=== PATIENT | female | born 1940 | race Caucasian/White ===

== ENCOUNTER 2017-03-04 10:53 | Emergency (ER) | payer MEDICARE, MEDICAID, SELFPAY ==
[2017-03-04 11:11] VITALS: BP 161/72; PULSE 93; RESP 18; TEMP 36.6; O2SAT 96; BMI 28.1
--- NOTE | 2017-03-04 11:26 | XR_ITS ---
XR chest 2V HISTORY: ITS.REASON: dx flu 4 days ago, cough worse and now SOA ORDERING PHYSICIAN: Sury Pastrana PATIENT AGE: 76 years COMPARISON: 01/05/2011 FINDINGS: The cardiomediastinal silhouette and pulmonary vascularity are within normal limits. There is a hiatal hernia. There is some patchy density in the lingula which may be due to an area of atelectasis, infiltrate, or even developing nodule.. The remaining lungs are clear. Degenerative changes are present in the thoracic spine. IMPRESSION: 1. Patchy density within the lingula nonspecific. Atelectasis infiltrate or developing nodule is considered. Follow-up suggested. 2. Small hiatal hernia
--- NOTE | 2017-03-04 12:16 | HMH.EDUTC ---
[facility] Disposition Clinical Impression: Influenza, Lingular pneumonia Disposition: Home, Self-Care Condition on Discharge: Good Instructions: Pneumonia-Adult, DI for Influenza -- Adult Additional Instructions: * As we discussed, your abnormality on your CXR is nonspecific but could be pneumonia and given your symptoms, pneumonia is likely. However follow up as we discussed VERY important. * Start antibiotic immediately * COntinue tamiflu * Tessalon Perles will not cause drowsiness but use at bedtime to help stop cough so that you can get some rest * Mucinex during the day for your cough and cough suppressant only at night. Be sure to drink lots of water. Insurance may not cover a prescription of mucinex. Might be cheaper to get 400mg tablets and take 2 tablets morning, midday and evening all with lots of water. * Lots of rest * Increase fluids, water, gatorade, powerade, pedialyte if /toddler/child * Monitor Temp. FU if fever develops * You (or your child) are contagious until no fever, aches, chills x 24 hours without medication for symptoms. Prescriptions: Azithromycin [Z-Dony 250mg Tab] 250 mg PO UD DOSE PK #6 tab Benzonatate [Tessalon Perle 100mg Cap] 200 mg PO HSP PRN #14 cap PRN Reason: Cough Referrals: Edgar Weiss MD [Primary Care Provider] - (On Monday to discuss CXR. Return here for new or worsening symptoms. 911/ER for difficulty breathing) Time of Disposition: 12:42 Medical Decision Making Vital Signs: 03/04/17 11:11 Temperature 98 F Temperature Source Temporal Artery Scan Pulse Rate [Right Radial] 93 H Respiratory Rate 18 Blood Pressure [Right Arm] 161/72 Blood Pressure Mean [Right Arm] 101 Blood Pressure Source [Right Arm] Automatic Cuff Blood Pressure Position [Right Arm] Sitting 02 Sat by Pulse Oximetry 96 Oxygen Delivery Method Room Air - Radiology Data #1 Image(s): Chest Image Reviewed: Yes I reviewed the patient's radiology image, Yes I have reviewed radiologist's interpretation nonspecific patchy density within lingula. Could be atelectasis, infiltrate or developing nodule. FU suggested. - Yosef Inquiry Pt receiving controlled substance: No [facility] HPI - General Stated complaint: had flu no better Time Seen by Provider: 03/04/17 12:16 Mode of Arrival: Ambulatory Source of Information: Patient Limitations: No Limitations Description of Symptoms (Recalled from Triage Doc. by RN): PT STATES THAT MONDAY SHE WAS SEEN BY [facility], TESTED POSITIVE FOR INFLUENZA A. PT REPORTS SHE IS NOW SOB AND HAS A COUGH. HEENT Symptoms (Recalled from RN notes): No Resp Symptoms (Recalled from RN notes): Yes (COUGH) Skin Symptoms (Recalled from RN notes): No MS Symptoms (Recalled from RN notes): No Functional Status (Recalled from RN notes): NA - History of Present Illness Provider Complaint: c/o worsening cough causing SOA since being diagnosed with the flu. Symptoms started like a little cold on Monday, 6 days ago. Got gradually worse each day so saw PCP's office ([facility]) on Monday. Dx flu. Started tamiflu and was told to continue mucinex. However cough seems worse and coughing so much I get short of breath . other family members have since tested positive as well. - Related Data Home Medications Medication Instructions Recorded Confirmed amlodipine 5 mg tablet 5 mg PO QDAY 03/01/17 atorvastatin 10 mg tablet 10 mg PO QDAY 03/01/17 cetirizine 10 mg tablet 10 mg PO QDAY tab 03/01/17 diclofenac 1 % topical gel 2 g TOPICAL QID 03/01/17 omeprazole 20 mg capsule,delayed 20 mg PO ONCE 03/01/17 release potassium chloride ER 10 mEq 10 meq PO QID cap 03/01/17 capsule,extended release valsartan 80 1 tab PO QDAY 03/01/17 mg-hydrochlorothiazide 12.5 mg tablet Previous Rx's Medication Instructions Recorded Azithromycin [Z-Dony 250mg Tab] 250 mg PO UD DOSE PK #6 tab 03/04/17 Benzonatate [Tessalon Perle 100mg 200 mg PO HSP PRN #14 cap 03/04/17 Cap] All
--- NOTE | 2017-03-04 12:34 | ED_ITS ---
[facility] [place] Clinical Impression: Influenza, Lingular pneumonia Disposition: Home, Self-Care Condition on Discharge: Good Instructions: Pneumonia-Adult, DI for Influenza -- Adult Additional Instructions: * As we discussed, your abnormality on your CXR is nonspecific but could be pneumonia and given your symptoms, pneumonia is likely. However follow up as we discussed VERY important. * Start antibiotic immediately * COntinue tamiflu * Tessalon Perles will not cause drowsiness but use at bedtime to help stop cough so that you can get some rest * Mucinex during the day for your cough and cough suppressant only at night. Be sure to drink lots of water. Insurance may not cover a prescription of mucinex. Might be cheaper to get 400mg tablets and take 2 tablets morning, midday and evening all with lots of water. * Lots of rest * Increase fluids, water, gatorade, powerade, pedialyte if /toddler/child * Monitor Temp. FU if fever develops * You (or your child) are contagious until no fever, aches, chills x 24 hours without medication for symptoms. Prescriptions: Azithromycin [Z-Dony 250mg Tab] 250 mg PO UD DOSE PK #6 tab Benzonatate [Tessalon Perle 100mg Cap] 200 mg PO HSP PRN #14 cap PRN Reason: Cough Referrals: Edgar Weiss MD [Primary Care Provider] - (On Monday to discuss CXR. Return here for new or worsening symptoms. 911/ER for difficulty breathing) Time of Disposition: 12:42 Medical Decision Making Vital Signs: 03/04/17 11:11 Temperature 98 F Temperature Source Temporal Artery Scan Pulse Rate [Right Radial] 93 H Respiratory Rate 18 Blood Pressure [Right Arm] 161/72 Blood Pressure Mean [Right Arm] 101 Blood Pressure Source [Right Arm] Automatic Cuff Blood Pressure Position [Right Arm] Sitting 02 Sat by Pulse Oximetry 96 Oxygen Delivery Method Room Air - Radiology Data #1 Image(s): Chest Image Reviewed: Yes I reviewed the patient's radiology image, Yes I have reviewed radiologist's interpretation nonspecific patchy density within lingula. Could be atelectasis, infiltrate or developing nodule. FU suggested. - Yosef Inquiry Pt receiving controlled substance: No [facility] [place] HPI - General Stated complaint: had flu no better Time Seen by Provider: 03/04/17 12:16 Mode of Arrival: Ambulatory Source of Information: Patient Limitations: No Limitations Description of Symptoms (Recalled from Triage Doc. by RN): PT STATES THAT MONDAY SHE WAS SEEN BY [facility], TESTED POSITIVE FOR INFLUENZA A. PT REPORTS SHE IS NOW SOB AND HAS A COUGH. HEENT Symptoms (Recalled from RN notes): No Resp Symptoms (Recalled from RN notes): Yes (COUGH) Skin Symptoms (Recalled from RN notes): No MS Symptoms (Recalled from RN notes): No Functional Status (Recalled from RN notes): NA - History of Present Illness Provider Complaint: c/o worsening cough causing SOA since being diagnosed with the flu. Symptoms started like a little cold on Monday, 6 days ago. Got gradually worse each day so saw PCP's office ([facility]) on Monday. Dx flu. Started tamiflu and was told to continue mucinex. However cough seems worse and coughing so much I get short of breath . other family members have since tested positive as well. - Related Data Home Medications Medication Instructions Recorded Confirmed amlodipine 5 mg tablet 5 mg PO QDAY 03/01/17 atorvastatin 10 mg tablet 10 mg PO QDAY 03/01/17 cetirizine 10 mg tablet 10 mg PO QDAY tab 03/01/17
== END 2017-03-04 12:44 | disposition home or self-care (01) ==
PROVIDERS: Emergency Provider Nurse Practitioner Family; Family Provider Emergency Medicine; PCP Emergency Medicine
DX: J10.1 Influenza due to other identified influenza virus with other respiratory manifestations (principal); J18.9 Pneumonia, unspecified organism
CPT/HCPCS: G0463; 71046; 99202

== ENCOUNTER → 2017-04-03 14:44 | Outpatient (CLI) | payer MEDICARE, MEDICAID, SELFPAY ==
--- NOTE | 2017-04-03 14:47 | XR_ITS ---
XR chest 2V HISTORY: ITS.REASON: Chest Congestion ORDERING PHYSICIAN: Edgar Weiss MD PATIENT AGE: 76 years COMPARISON: 03/04/2017 FINDINGS: Unremarkable cardiovascular structures. There is a small to medium sized hiatal hernia with chronic changes in the left lower lobe. Hyperinflation with attenuation of the peripheral pulmonary vessels consistent with COPD. No lobar consolidation or collapse. Mild thoracic kyphosis with degenerative changes in the thoracic spine. IMPRESSION: COPD with hiatal hernia. No change with no acute finding
== END ==
PROVIDERS: PCP Emergency Medicine; Visit Provider Emergency Medicine
DX: R09.89 Other specified symptoms and signs involving the circulatory and respiratory systems (principal)
CPT/HCPCS: 71046

== ENCOUNTER → 2017-05-02 13:37 | Outpatient (REF) | payer MEDICARE, MEDICAID, SELFPAY ==
[2017-05-02 18:41] LABS: Basophils # 0.1 K/mm3 (0-0.2); Basophils % 0.7 % (0.1-2.0); Eosinophils # 0.1 K/mm3 (0.0-0.4); Hematocrit 43.3 % (37.0-47.0); Hemoglobin 13.6 g/dL (12.2-16.2); Lymphocytes # 2.2 K/mm3 (0.7-4.5); Lymphocytes % 30.1 K/mm3 (10-50); Mean Corpuscular HGB Conc 31.4 g/dL (31.8-35.4); Mean Corpuscular Hemoglobin 26.9 pg (27.0-31.2); Mean Corpuscular Volume 85.6 fl (81-99); Mean Platelet Volume 7.5 fl (7.4-10.4); Monocytes # 0.5 K/mm3 (0.1-1.0); Monocytes % 6.5 % (1.7-9.3); Neutrophils # 4.4 K/mm3 (1.8-7.8); Neutrophils % 60.7 % (37.0-80.0); Platelet Count 335 K/mm3 (142-424); Red Blood Count 5.06 M/mm3 (4.20-5.40); Red Cell Distribution Width 13.8 % (11.5-17.5); White Blood Count 7.3 K/mm3 (4.8-10.8)
[2017-05-02 19:29] LABS: Alanine Aminotransferase 23 U/L (12-78); Albumin Level 4.1 gm/dL (3.4-5.0); Albumin/Globulin Ratio 1.1 (1.1-1.8); Alkaline Phosphatase 91 U/L (46-116); Aspartate Amino Transferase 19 U/L (15-37); Bilirubin,Total 0.5 mg/dL (0.2-1.0); Blood Urea Nitrogen 15 mg/dL (7-18); Calcium 9.8 mg/dL (8.5-10.1); Carbon Dioxide 28 mmol/L (21.0-32.0); Chloride 102 mmol/L (98-107); Chol/HDL Ratio 3.2 (1-3.5); Cholesterol 175 mg/dL (140-200); Creatinine,Serum 1.14 mg/dL (0.55-1.02); Estimated Glomerular Filt Rate 46 ml/min (>60); Free T4 (Free Thyroxine) 0.91 ng/dl (0.76-1.46); GFR (African American) 56 ML/MIN (>60); Globulin 3.6 gm/dl (1.3-3.2); Glucose 121 mg/dL (74-106); HDL Cholesterol 54 mg/dL (29-89); LDL Cholesterol 60 mg/dL (0-130); Sodium 137 mmol/L (136-145); Thyroid Stimulating Hormone 1.96 uIU/ml (0.358-3.740); Total Protein,Serum 7.7 gm/dL (6.4-8.2); Triglycerides 306 mg/dL (30-200); VLDL Cholesterol 61 mg/dL (0-40)
[2017-05-04 12:17] LABS: Vitamin D 25 Hydroxy 50.3 ng/mL (30.0-100.0)
== END ==
LOC: LAB 13:37
PROVIDERS: Visit Provider Emergency Medicine
DX: Z79.899 Other long term (current) drug therapy (principal); R53.83 Other fatigue
CPT/HCPCS: 80053; 80061; 82652; 84439; 84443; 85025

== ENCOUNTER → 2018-02-14 08:06 | Outpatient (CLI) | payer MEDICARE, MEDICAID, SELFPAY ==
[2018-02-14 08:29] LABS: Basophils # 0.1 K/mm3 (0-0.2); Basophils % 1.1 % (0.1-2.0); Eosinophils # 0.1 K/mm3 (0.0-0.4); Eosinophils % 1.3 % (0.1-12.0); Hematocrit 40.9 % (37.0-47.0); Hemoglobin 13.2 g/dL (12.2-16.2); Lymphocytes % 31.1 % (10-50); Mean Corpuscular HGB Conc 32.3 g/dL (31.8-35.4); Mean Corpuscular Hemoglobin 26.6 pg (27.0-31.2); Mean Corpuscular Volume 82.5 fl (81-99); Mean Platelet Volume 6.7 fl (7.4-10.4); Monocytes # 0.3 K/mm3 (0.1-1.0); Monocytes % 4.3 % (1.7-9.3); Neutrophils % 62.1 % (37.0-80.0); Platelet Count 261 K/mm3 (142-424); Red Blood Count 4.95 M/mm3 (4.20-5.40); Red Cell Distribution Width 13.8 % (11.5-17.5); White Blood Count 6.5 K/mm3 (4.8-10.8)
[2018-02-14 10:30] LABS: Alanine Aminotransferase 22 U/L (12-78); Albumin Level 3.9 gm/dL (3.4-5.0); Albumin/Globulin Ratio 1.1 (1.1-1.8); Alkaline Phosphatase 88 U/L (46-116); Anion Gap 11.7 mEq/L (5-15); Aspartate Amino Transferase 16 U/L (15-37); Bilirubin,Total 0.7 mg/dL (0.2-1.0); Blood Urea Nitrogen 18 mg/dL (7-18); Calcium 10.1 mg/dL (8.5-10.1); Carbon Dioxide 31 mmol/L (21.0-32.0); Chloride 103 mmol/L (98-107); Chol/HDL Ratio 2.7 (1-3.5); Cholesterol 167 mg/dL (140-200); Creatinine,Serum 0.75 mg/dL (0.55-1.02); Estimated Glomerular Filt Rate 75 ml/min (>60); GFR (African American) 90 ML/MIN (>60); Globulin 3.7 gm/dl (1.3-3.2); Glucose 111 mg/dL (74-106); HDL Cholesterol 61 mg/dL (29-89); LDL Cholesterol 88 mg/dL (0-130); Potassium 4.7 mmoL/L (3.5-5.1); Sodium 141 mmol/L (136-145); Total Protein,Serum 7.6 gm/dL (6.4-8.2); Triglycerides 90 mg/dL (30-200); VLDL Cholesterol 18 mg/dL (0-40)
[2018-02-16 16:13] LABS: Vitamin D 25 Hydroxy 43.3 ng/mL (30.0-100.0)
== END ==
PROVIDERS: Visit Provider Nurse Practitioner Family
DX: E55.9 Vitamin D deficiency, unspecified (principal); E78.5 Hyperlipidemia, unspecified; I10 Essential (primary) hypertension
CPT/HCPCS: 36415; 80053; 80061; 82652; 85025

== ENCOUNTER → 2018-05-24 09:16 | Outpatient (CLI) | payer MEDICARE, MEDICAID, SELFPAY ==
--- NOTE | 2018-05-24 09:26 | XR_ITS ---
XR hip RT 2-3V w/pelvis HISTORY: ITS.REASON: right hip pain ORDERING PHYSICIAN: Antony Faustin MD PATIENT AGE: 77 years COMPARISON: None FINDINGS: There are mild osteoarthritic changes of both hips. No fracture or dislocation. No lytic or blastic change. Degenerative changes are present in the lower lumbar spine. IMPRESSION: Mild osteoarthritis
== END ==
PROVIDERS: PCP Emergency Medicine; Visit Provider Orthopaedic Surgery
DX: M25.551 Pain in right hip (principal)
CPT/HCPCS: 73502

== ENCOUNTER 2018-06-12 09:00 | Outpatient (RCR) | payer MEDICARE, MEDICAID, SELFPAY ==
--- NOTE | 2018-06-05 11:43 | HMH.PTOPEV ---
PT Outpatient Evaluation Rehab PT Outpatient Evaluation Start: 06/05/18 11:33 Freq: Status: Active Protocol: Document 06/05/18 11:33 GALINDO (Rec: 06/05/18 11:43 GALINDO [id number]) Electronically Signed By Tony Maddox, PT 06/05/18 11:33 Outpatient Therapy Subjective History Subjective History Pt reports h/o chronic R hip pain since 2013, multiple injections, P.T., and imaging studies-better from 2015-until ~8-9 months ago. Pt reports mostly posterio-lateral R hip pain, recent injection on 05/24 into grt. tro bursa area ' seemed to help, but didn't last long'. Chief Complaint Pain Symptom Type Ache Throb Dull Symptoms Relieved By Rest/Positioning Prescription Meds Symptoms Aggravated By Bending/Stooping Walking Lifting Prior Functional Limitations Lifting Housework Current Functional Limitations Lifting Housework Walking Bending/Stooping Symptom Description Constant but Variable Level of pain today (0-10) 3 Pain scale - at its best (0-10) 2 Pain scale - at its worst (0-10) 7 Lumbopelvic Eval Posture Thoracic Spine Posture Standing Position Neutral Lumbar Spine Posture Standing Position Neutral Assistive device Assistive Devices None / NA Gait Observation General Gait Pattern Observation No Deviations/Normal Palapation tenderness right paraspinal tenderness Yes: 3/4 buttock tenderness Yes: 3/4 Lumbar/Sacral Palpation Findings Tenderness Accessory Movement L4 right L5 right Range of Motion Lumbar Spine Active Flexion Range of 0-50 Motion (degrees) Lumbar Spine Active Extension Range of 0-20 Motion (degrees) Left Lumbar Spine Lateral Flexion Active 0-20 Range of Motion (degrees) Right Lumbar Spine Lateral Flexion 0-20 Active Range of Motion (degrees) Manual Muscle Test Bilateral Knee Extension Strength Grade 5 Normal Knee Flexion Strength Grade 4 Good Hip Flexion Strength Grade 4 Good Hip Abduction Strength Grade 4 Good Hip External Rotation Strength Grade 4 Good Hip Internal Rotation Strength Grade 4 Good Extensor Hallucis Longus Strength Grade 5 Normal Ankle D
== END 2018-06-12 09:05 | disposition home or self-care (01) ==
LOC: PT 09:00
PROVIDERS: Visit Provider Orthopaedic Surgery
DX: M70.71 Other bursitis of hip, right hip (principal)
CPT/HCPCS: 97010; 97014; 97035; 97110; 97163; G0283

== ENCOUNTER → 2019-03-07 07:06 | Outpatient (CLI) | payer MEDICARE, OTHER, SELFPAY ==
--- NOTE | 2019-03-07 | CA_ITS ---
APPROVED REPORT Exam: Pharmacologic Technologist: Suha Dempsey, Ht: 5 ft 4 in Wt: 156 lbs BSA: 1.76 m2 HR: 66 bpm BP: 179/75 mmHg Indications: SOA Medical History Medical History: HTN, Hyperlipidemia Medications: Losartan,,,,, KCL,,,,, Amlod/Benazepril,,,,, AtorvaASTATIN,,,,, Omepazole,,,,, Allergies: No known drug allergies Cardiac Risk Factors: HTN, Hyperlipidemia, Smoking Stress Test Details Test: LEXISCAN HR Resting HR: 70 bpm Max Heart Rate (APMHR): 141 bpm Max HR Achieved: 104 bpm Target HR (85% APMHR): 119 bpm % of APMHR: 73 Recovery HR: 66 bpm BP Resting BP: 179/75 mmHg Max BP: 179/75 mmHg Recovery BP: 111.0/52.0 mmHg ECG Resting ECG: SINUS RHYTHM Clinical Exercise duration: 04:00 min Highest Stage Achieved: Stress ECG Conclusion LEXISCAN PORTION COMPLETED. PATIENT HAD NO C/O DURING PEAK INFUSION. NO CHEST PAIN,SOA,OR N/V. NO ECTOPY NOTED. LESS THAN 1.5MM ST DEPRESSION. IMAGES TO FOLLOW Test Summary REST . . . . . . . Sitting REST 07:14 . . 70 . 179/ 75 . . Stage 1 01:00 . . 101 . . . . Stage 2 01:00 . . 86 . 161/ 70 . . Stage 3 01:00 . . 68 . 117/ 57 . . Stage 4 01:00 . . 57 . 116/ 49 . Stop exercise at 04:00 RECOVERY 01:00 . . 65 . 111/ 52 . . RECOVERY 02:00 . . 71 . 111/ 58 . . RECOVERY 03:00 . . 70 . 132/ 63 . . RECOVERY 04:00 . . 70 . 132/ 63 . . RECOVERY 04:03 . . 69 . 132/ 63 . . Electronically signed by : Marty Jolly, 03/07/2019 15:13:55
--- NOTE | 2019-03-07 07:07 | CA_ITS ---
APPROVED REPORT EXAM: Comprehensive 2D, Doppler, and color-flow Echocardiogram Executive Manager: Tosin Matson RT(R) Ht: 5 ft 4 in Wt: 156lbs BSA: 1.76 BP: 142/80 mmHg Indications: CP, fatigue, HTN, hyperlipidemia, SOB 2D Dimensions LVOT 1.57 cm (M/F) 1.5-2.5 M-Mode Dimensions RVDd 1.54 cm (0.9-2.6) LVDd 5.10 cm (3.5-5.7) LVDs 3.79 cm (3.5-5.7) IVSd 0.74 cm (0.6-1.1) PWd 1.07 cm (0.6-1.1) EF (Teich) 50.20% FS 25.70% EDV (Teich) 123.80 mL ESV (Teich) 61.60 mL LV Diastology E/A Ratio 0.82 Mitral Valve MV A Velocity 99.00 (40-130 cm/s) Left Ventricle Left atrium is mildly enlarged, left ventricle is normal size, mild concentric left ventricular hypertrophy, visually estimated ejection fraction 55% with no regional wall motion abnormality. Grade 1 diastolic dysfunction seen without tissue Doppler evidence of raise left atrial pressure. Right Ventricle Right atrium and right ventricle are mildly enlarged with normal contractility. Aortic Valve Aortic valve is thickened and calcified leaflet chordae display good mobility, there is no aortic stenosis or aortic insufficiency. Mitral Valve Mitral valve is grossly normal, there is mild mitral regurgitation. Tricuspid Valve Tricuspid valve is grossly normal, there is mild tricuspid regurgitation, tricuspid regurgitation jet velocity is inadequate for calculation of the right ventricular systolic pressure. Pulmonic Valve Pulmonic valve is poorly visualized. Great Vessels Aortic root is normal size. Pericardium No significant pericardial effusion noted. Conclusion 1. Mild biatrial abdomen, normal left ventricular size, mild concentric left ventricular hypertrophy, visually estimated ejection fraction 55% with no regional wall motion abnormality, grade 1 diastolic dysfunction seen without tissue Doppler evidence of raise left atrial pressure. 2. Mildly enlarged right ventricle with normal contractility. 3. Mild mitral and tricuspid regurgitation. 4. No significant pericardial effusion noted. Electronically signed by : Marty Jolly, 03/08/2019 13:31:02
--- NOTE | 2019-03-07 07:07 | NM_ITS ---
APPROVED REPORT Exam: Nuclear Stress Test Indication: HTN, HYPERLIPIDEMIA, FM.HX, SOB, FATIGUE Patient Location: Outpatient Stress Tech: Betzy Maximus MA Tech:Umm Sullivan VICKIBibi RT(R)(N) Ht: 5 ft 4 in Wt: 156 lbs Bra Size: 38DD HR: 66 bpm BP: 179/75 mmHg BSA: 1.76 m2 BMI: 26.7 History: HTN, HYPERLIPIDEMIA, FM.HX, SOB, FATIGUE Procedure: Patient received a 0.4 mg of intravenous Lexiscan, resting heart rate 66 bpm, resting blood pressure 179/75 mmHg, with Lexiscan maximum heart rate achived was 58 bpm which is Less than 85 % of the maximum predicted heart rate and blood pressure was 116/49 mmHg. With Lexiscan, patient denied any complaint of chest pain. Electrocardiogram Resting electrocardiogram showed sinus rhythm, with Lexiscan there is less than 1.[address] segment depression from the baseline EKG. The EKG portion of the Lexiscan Myoview is nondiagnostic. Cardiac Stress and Resting SPECT Images: Cardiac Stress and Resting SPECT images were obtained using technetium 99m Myoview 31.4 mCi stress and 10.50 mCi at rest. Gated SPECT for analysis of segmental wall motion and calculation of the ejection fraction also done. Cardiac stress and resting SPECT images show uniform myocardial activity without segmental perfusion abnormality, computer derived ejection fraction is over 65% with no regional wall motion abnormality, right ventricle is normal size and contractility. Conclusion: 1. The EKG portion of the Lexiscan Myoview is nondiagnostic. 2. No scintigraphic evidence of reversible ischemia seen, computer derived ejection fraction is over 65% with no regional wall motion abnormality, right ventricle is normal size and contractility. 3. Normal Lexiscan Myoview study. Electronically signed by : Marty Jolly, 03/07/2019 15:15:22
--- NOTE | 2019-03-07 09:52 | HMH.ITSHM ---
Current Home Medications as stated by this patient Otilia Melendez or client representative. []losartan atorrastatin omeprazole potassium amlodipine
== END ==
PROVIDERS: PCP Emergency Medicine; Visit Provider Emergency Medicine
DX: R01.1 Cardiac murmur, unspecified (principal); R07.9 Chest pain, unspecified
CPT/HCPCS: 78452; 93017; 93306; A9502; J2785

== ENCOUNTER 2020-01-01 09:55 | Emergency (ER) | payer MEDICARE, OTHER, SELFPAY ==
[2020-01-01] VITALS (14 sets, daily range): BP systolic 121–258; BP diastolic 60–119; PULSE 71–103; RESP 16–22; TEMP 36.6–36.7; O2SAT 94–100; BMI 26.6
--- NOTE | 2020-01-01 10:04 | ECG_ITS ---
APPROVED REPORT Exam: Resting ECG HR:107 bpm ECG Measurements Heart Rate 107 AXES QRSd 68 QRS 66 QT 304 T 100 QTc 405 Conclusion sinus tachycardia with PAC'S Nonspecific ST and T wave abnormality,Motion Artifact Abnormal ECG Electronically signed by : Jesse Webb, 01/01/2020 16:04:02
--- NOTE | 2020-01-01 10:10 | PC.NURSE ---
fsbs 119
--- NOTE | 2020-01-01 10:12 | PC.NURSE ---
visual acuity L 20/30 R 20/20
--- NOTE | 2020-01-01 10:13 | XR_ITS ---
PROCEDURE: XR CHEST PORTABLE CLINICAL HISTORY: doesnt feel right Visual disturbance, weakness COMPARISON: CR CXR2V XR chest 2V from 03/04/2017 CR CXR2V XR chest 2V from 04/03/2017 FINDINGS: The cardiomediastinal silhouette and pulmonary vascularity are within normal limits. There are chronic changes in the left lower lobe with small hiatal hernia noted. Degenerative changes of the shoulders IMPRESSION: No acute findings. Dictated by: Aneudy Martinez MD 01/01/2020 10:43 Aneudy Maritnez MD in [facility] 01/01/2020 10:43
--- NOTE | 2020-01-01 10:13 | CT_ITS ---
PROCEDURE: CT HEAD/BRAIN WO CON CLINICAL INDICATION: vision changes Visual disturbance COMPARISON: No exams were available for comparison TECHNIQUE: Axial images obtained. All CT scans at the facility use one or more dose reduction, viz: automated exposure control, ma/kV adjustment per patient size (including targeted exams where dose is matched to indication, i.e. head), or iterative reconstruction technique. FINDINGS: No midline shift, mass effect, intracranial hemorrhage, hydrocephalus, or extra-axial fluid collection is evident. There is generalized atrophy with hypoattenuation of the periventricular white matter consistent with microangiopathic changes. The calvarium has an unremarkable appearance. No mastoid effusion. No sinus air-fluid level. IMPRESSION: No acute intracranial finding Dictated by: Aneudy Martinez MD 01/01/2020 10:42 Aneudy Martinez MD in [facility] 01/01/2020 10:42
--- NOTE | 2020-01-01 10:14 | PC.NURSE ---
pt to CT
[2020-01-01 10:24] LABS: Basophils # 0.1 K/mm3 (0-0.2); Basophils % 0.6 % (0.1-2.0); Eosinophils # 0.1 K/mm3 (0.0-0.4); Eosinophils % 0.9 % (0.1-12.0); Hematocrit 43.7 % (37.0-47.0); Hemoglobin 13.8 g/dL (12.2-16.2); Lymphocytes # 2.4 K/mm3 (0.7-4.5); Lymphocytes % 27.9 % (10-50); Mean Corpuscular HGB Conc 31.6 g/dL (31.8-35.4); Mean Corpuscular Hemoglobin 26.4 pg (27.0-31.2); Mean Corpuscular Volume 83.4 fl (81-99); Mean Platelet Volume 6.6 fl (7.4-10.4); Monocytes # 0.4 K/mm3 (0.1-1.0); Monocytes % 4.4 % (1.7-9.3); Neutrophils # 5.6 K/mm3 (1.8-7.8); Neutrophils % 66.2 % (37.0-80.0); Platelet Count 261 K/mm3 (142-424); Red Blood Count 5.24 M/mm3 (4.20-5.40); Red Cell Distribution Width 13.4 % (11.5-17.5); White Blood Count 8.5 K/mm3 (4.8-10.8)
[2020-01-01 10:35] LABS: Chloride 98 mmol/L (98-107); Sodium 139 mmol/L (136-145)
[2020-01-01 10:36] LABS: Potassium 3.4 mmoL/L (3.5-5.1)
--- NOTE | 2020-01-01 10:36 | PC.NURSE ---
pt return from CT
[2020-01-01 10:38] LABS: Alanine Aminotransferase 21 U/L (12-78); Albumin Level 5.2 g/dl (3.5-5.0); Albumin/Globulin Ratio 1.4 (1.1-1.8); Alkaline Phosphatase 96 U/L (38-126); Anion Gap 15.4 mEq/L (5-15); Aspartate Amino Transferase 36 U/L (14-36); Bilirubin,Total 1.1 mg/dl (0.2-1.3); Blood Urea Nitrogen 15 mg/dl (7-17); Carbon Dioxide 29 mmol/L (22.0-30.0); Creatinine Clearance Estimated 50 mL/min (50-200); Estimated Glomerular Filt Rate 81 ml/min (>60); GFR (African American) 97 ML/MIN (>60); Globulin 3.8 g/dL (1.3-3.2)
[2020-01-01 10:39] LABS: Calcium 10.9 mg/dl (8.4-10.2); Glucose 136 mg/dl (74-100)
[2020-01-01 10:43] LABS: Activated Partial Thrombo Time 24.8 seconds (23.6-34.0); INR 1.03 (0.9-1.1); Prothrombin Time 11.4 seconds (9.4-11.8)
[2020-01-01 10:44] LABS: POC Glucose,Bedside 119 (70-110)
--- NOTE | 2020-01-01 10:58 | HMH.EDWEAK ---
ED Disposition Clinical Impression: Headache Qualifiers: Headache type: unspecified Headache chronicity pattern: acute headache Intractability: not intractable Qualified Code(s): R51.9 - Headache, unspecified Hypertension Qualifiers: Hypertension type: essential hypertension Qualified Code(s): I10 - Essential (primary) hypertension Disposition: Home, Self-Care Condition on Discharge: Good Instructions: Essential Hypertension Referrals: Edgar Weiss MD [Primary Care Provider] - - Critical Care Critical Care Time: No Attestation: On 01/01/20, the high probability of a clinically significant, sudden or life threatening deterioration of the following system(s) required my full and direct attention, intervention and personal management. The time I documented below is in addition to time spent performing reported procedures but includes the following listed in this critical care notation. Medical Decision Making - Medical Records Medical records reviewed: Yes: I reviewed the patient's medical records. - Yosef Inquiry Pt receiving controlled substance: No Vital Signs: 01/01/20 09:58 01/01/20 10:11 01/01/20 10:30 Temperature 97.8 F Temperature Source Oral Pulse Rate [Left Radial] 103 H 100 H 85 Respiratory Rate 18 17 Blood Pressure Blood Pressure [Left Arm] 192/91 H 189/86 H 205/95 H Blood Pressure Mean [Left Arm] 124 120 131 Blood Pressure Source [Left Arm] Automatic Cuff Automatic Cuff Blood Pressure Position [Left Arm] Sitting 02 Sat by Pulse Oximetry 96 97 100 Oxygen Delivery Method Room Air Room Air 01/01/20 11:01 01/01/20 11:09 01/01/20 11:20 Temperature Temperature Source Pulse Rate [Left Radial] 85 88 91 H Respiratory Rate 18 Blood Pressure Blood Pressure [Left Arm] 258/119 H 234/108 H 217/106 H Blood Pressure Mean [Left Arm] 165 150 143 Blood Pressure Source [Left Arm] Automatic Cuff Blood Pressure Position [Left Arm] 02 Sat by Pulse Oximetry 96 97 Oxygen Delivery Method Room Air 01/01/20 11:30 01/01/20 11:42 01/01/20 11:50 Temperature Temperature Source Pulse Rate [Left Radial] 95 H 78 Respiratory Rate 16 Blood Pressure 236/110 H Blood Pressure [Left Arm] 224/106 H 205/94 H Blood Pressure Mean [Left Arm] 145 131 Blood Pressure Source [Left Arm] Blood Pressure Position [Left Arm] 02 Sat by Pulse Oximetry 95 Oxygen Delivery Method 01/01/20 11:55 01/01/20 11:57 01/01/20 12:00 Temperature Temperature Source Pulse Rate [Left Radial] 72 75 71 Respiratory Rate 22 22 18 Blood Pressure Blood Pressure [Left Arm] 167/84 H 139/66 125/61 Blood Pressure Mean [Left Arm] 111 90 82 Blood Pressure Source [Left Arm] Blood Pressure Position [Left Arm] 02 Sat by Pulse Oximetry 95 94 L 96 Oxygen Delivery Method - Lab Data Lab Results 01/01/20 10:09: POC Glucose 119 H 01/01/20 10:10: WBC 8.5, RBC 5.24, Hgb 13.8, Hct 43.7, MCV 83.4, MCH 26.4 L, MCHC 31.6 L, RDW 13.4, Plt Count 261, MPV 6.6 L, Neut % (Auto) 66.2, Lymph % (Auto) 27.9, Crosby % (Auto) 4.4, Eos % (Auto) 0.9, Baso % (Auto) 0.6, Neut # (Auto) 5.6, Lymph # (Auto) 2.4, Crosby # (Auto) 0.4, Eos # (Auto) 0.1, Baso # (Auto) 0.1 01/01/20 10:10: PT 11.4, INR 1.03, APTT 24.8 01/01/20 10:10: Sodium 139, Potassium 3.4 L, Chloride 98, Carbon Dioxide 29, Anion Gap 15.4 H, BUN 15, Creatinine 0.70, Estimated Creat Clear 50, Estimated GFR 81, Est GFR ( Amer) 97, Glucose 136 H, Calcium 10.9 H, Total Bilirubin 1.1, AST 36, ALT 21, Alkaline Phosphatase 96, Troponin I < 0.01, Total Protein 9.0 H, Albumin 5.2 H, Globulin 3.8 H, Albumin/Globulin Ratio 1.4 Result diagrams: 01/01/20 10:10 01/01/20 10:10 Orders (Tests/Meds): ED MEDICATIONS Discontinued Medications Generic Name Dose Route Start Last Admin Trade Name Freq PRN Reason Stop Dose Admin Hydralazine HCl 10 mg 01/01/20 10:47 01/01/20 10:57 Hydralazine 20mg/Ml Vial IV 01/01/20 10:48 10 mg ONC
[2020-01-01 11:03] LABS: Troponin I < 0.01 ng/ml (0.00-0.034)
== END 2020-01-01 13:12 | disposition home or self-care (01) ==
PROVIDERS: Emergency Provider Emergency Medicine; PCP Emergency Medicine
DX: R51.9 Headache, unspecified (principal); I10 Essential (primary) hypertension; K21.9 Gastro-esophageal reflux disease without esophagitis; E78.5 Hyperlipidemia, unspecified; E87.6 Hypokalemia; E55.9 Vitamin D deficiency, unspecified; Z79.899 Other long term (current) drug therapy; Z51.81 Encounter for therapeutic drug level monitoring
CPT/HCPCS: 70450; 71045; 80053; 82962; 84484; 85025; 85610; 85730; 93005; 96374; 96375; 99283

== ENCOUNTER → 2020-01-20 10:17 | Outpatient (CLI) | payer MEDICARE, OTHER, SELFPAY ==
[2020-01-20 12:37] LABS: Coronavirus 19 IgG Antibody Positive (Negative); Coronavirus 19 IgM Antibody Negative (Negative)
== END ==
PROVIDERS: Visit Provider Ophthalmology
DX: Z01.818 Encounter for other preprocedural examination (principal)
CPT/HCPCS: 36415; 86328

== ENCOUNTER 2020-01-21 08:23 | Day surgery (SDC) | payer MEDICARE, OTHER, SELFPAY ==
[2020-01-14 13:22] VITALS: BMI 26.6
[2020-01-21 09:40] VITALS: BP 153/71; PULSE 77; RESP 18; TEMP 36.4; O2SAT 99
[2020-01-21 10:57] VITALS: BP 155/75; PULSE 85; RESP 16; TEMP 36.6; O2SAT 95
== END 2020-01-21 11:04 | disposition home or self-care (01) ==
LOC: OUTP 08:26
PROVIDERS: PCP Emergency Medicine; Visit Provider Ophthalmology
PROC: (CPT 66821; principal; 2020-01-21 09:00)
DX: H26.40 Unspecified secondary cataract (principal); M19.90 Unspecified osteoarthritis, unspecified site; K21.9 Gastro-esophageal reflux disease without esophagitis; I10 Essential (primary) hypertension; E78.5 Hyperlipidemia, unspecified; J44.9 Chronic obstructive pulmonary disease, unspecified; H91.90 Unspecified hearing loss, unspecified ear
CPT/HCPCS: 66821

== ENCOUNTER → 2020-03-11 12:06 | Outpatient (CLI) | payer MEDICARE, OTHER, SELFPAY ==
--- NOTE | 2020-03-11 | CA_ITS ---
APPROVED REPORT Exam: Pharmacologic Technologist: Chela Ontiveros, Ht: 5 ft 2 in Wt: 152 lbs BSA: 1.70 m2 HR: 71 bpm BP: 161/69 mmHg Indications: Chest pain, HTN Medical History Medications: Amlodipine,,,,, Omeprazole,,,,, Atorvastatin,,,,, Losartan/HCTZ,,,,, Diclofenac,,,,, VitaminD 3,,,,, [place],,,,, Stress Test Details Test: LEXISCAN HR Resting HR: 90 bpm Max Heart Rate (APMHR): 140 bpm Max HR Achieved: 110 bpm Target HR (85% APMHR): 119 bpm % of APMHR: 78 Recovery HR: 76 bpm BP Resting BP: 161/69 mmHg Max BP: 161/69 mmHg Recovery BP: 128.0/56.0 mmHg ECG Resting ECG: NSR, Normal Clinical Exercise duration: 04:01 min Highest Stage Achieved: Exercise capacity: 1.0 METs Stress ECG Conclusion Symptoms: Mild stomach discomfort, lightheaded, No CP. Arrythmias/Ectopy: None ST-T Changes: No significant changes Conclusion: Unremarkable Lexiscan stress, Myoview images reported separetely. Test Summary REST . . . . . . . Resting REST 03:25 . . 90 . 161/ 69 . . Stage 1 01:00 . . 107 . . . . Stage 2 01:00 . . 90 . 134/ 51 . . Stage 3 01:00 . . 69 . . . . Stage 4 01:00 . . 71 . 97/ 44 . . Stage 4 01:01 . . 71 . 97/ 44 . Stop exercise at 04:01 RECOVERY 01:00 . . 67 . 98/ 44 . . RECOVERY 02:00 . . 69 . 98/ 44 . . RECOVERY 03:00 . . 70 . 112/ 52 . . RECOVERY 04:00 . . 85 . 112/ 52 . . RECOVERY 05:00 . . 76 . 112/ 52 . . RECOVERY 05:21 . . 77 . 128/ 56 . . Electronically signed by : Marty Jolly, 03/12/2020 13:09:05
--- NOTE | 2020-03-11 12:07 | NM_ITS ---
APPROVED REPORT Exam: Nuclear Stress Test Indication: HTN, HYPERLIPIDEMIA, FORMER TOB USER, FM HX, C.P., SOB, FATIGUE Patient Location: Outpatient Stress Tech: Mckenzie Vinson [place] Tech:SHARON Pickering RT (R)(N)(M) Ht: 5 ft 4 in Wt: 155 lbs Bra Size: 38DD HR: 71 bpm BP: 161/69 mmHg BSA: 1.76 m2 BMI: 26.6 History: HTN, HYPERLIPIDEMIA, FORMER TOB USER, FM HX, C.P., SOB, FATIGUE Procedure: Patient received a 0.4 mg of intravenous Lexiscan, resting heart rate 71 bpm, resting blood pressure 161/69 mmHg, with Lexiscan maximum heart rate achived was 109 bpm which is Less than 85 % of the maximum predicted heart rate and blood pressure was 148/65 mmHg. With Lexiscan, patient denied any complaint of chest pain. Electrocardiogram Resting electrocardiogram showed sinus rhythm, with Lexiscan there is less than 1.[address] segment depression noted from the baseline EKG. The EKG portion of the Lexiscan is nondiagnostic. Cardiac Stress and Resting SPECT Images: Cardiac Stress and Resting SPECT images were obtained using technetium 99m Myoview 31.4 mCi stress and 10.17 mCi at rest. Gated SPECT for analysis of segmental wall motion and calculation of the ejection fraction also done. Prone imaging was also done. Cardiac stress and resting SPECT images show uniform myocardial activity without segmental perfusion abnormality, computer derived ejection fraction is over 65% with no regional wall motion abnormality, right ventricle is normal size and contractility. Conclusion: 1. The EKG portion of the Lexiscan is nondiagnostic. 2. No scintigraphic evidence of reversible ischemia seen, computer derived ejection fraction is over 65% with no regional wall motion abnormality, right ventricle is normal size and contractility. 3. Normal Lexiscan Myoview study. Electronically signed by : Marty Jolly, 03/12/2020 13:12:41
--- NOTE | 2020-03-11 13:17 | CA_ITS ---
APPROVED REPORT EXAM: Comprehensive 2D, Doppler, and color-flow Echocardiogram Silver Recovery Operator: Darlyn Mancilla RCS, RVS Ht: 5 ft 2 in Wt: 152lbs BSA: 1.70 BP: 170/92 mmHg Indications: CP, Sob, DM, Fatigue,GERD, HLD, HTN 2D Dimensions Aortic Root 2.93 cm F: 2.7 - 3.3 Left Atrium 2.73 cm F: 2.7 - 3.8 LVOT 1.93 cm (M/F) 1.5-2.5 M-Mode Dimensions LA Diam 2.76 cm (1.9-4.0) Ao Diam 3.26 cm (2.0-3.7) LVDs 4.39 cm (3.5-5.7) EPSs 0.30 cm ESV (Teich) 53.00 mL LV Diastology E Decel Time 273.00 (160-240 msec) E/A Ratio 1.02 MED E' 8.20 (< 7 cm/sec) MED A' 9.30 cm/s E'/MED E' Ratio 22.20 (>14) LAT E' 8.00 (<10 cm/sec) LAT A' 12.40 cm/s E/LAT E' Ratio 22.75 (>14) Aortic Valve AO Peak GR. 8.40 mmHg Mitral Valve MV A Velocity 178.00 (40-130 cm/s) E/A Ratio 1.02 MV Decel. Time 273.00 (160-240 ms) Tricuspid Valve TR P. Velocity 210.00 cm/s RAP Estimate 10.00 mmHg RVSP 27.70 mmHg Left Ventricle Left atrium is mildly enlarged, left ventricle is normal size, preserved left ventricular systolic function, visually estimated ejection fraction 55% with no regional wall motion abnormality, grade 1 diastolic dysfunction seen, there is mild concentric left ventricular hypertrophy seen. Tissue Doppler is not indicated evaluate left atrial pressure. Right Ventricle Right atrium and right ventricle are normal size and contractility. Aortic Valve Aortic valve is minimally thickened and fibrosed, there is no aortic stenosis or aortic insufficiency. Mitral Valve Mitral valve leaflets are minimally thickened, there is mild mitral regurgitation. Tricuspid Valve Tricuspid valve is grossly normal, there is mild tricuspid regurgitation, tricuspid regurgitation jet velocity is inadequate for calculation of the right ventricular systolic pressure. Pulmonic Valve Pulmonic valve is poorly visualized. Great Vessels Aortic root is normal size. Pericardium No significant pericardial effusion noted. Conclusion 1. Mildly enlarged left atrium, normal left ventricular size, mild concentric left ventricular hypertrophy, visually estimated ejection fraction 55% with no regional wall motion abnormality, grade 1 diastolic dysfunction seen without tissue Doppler evidence of raise left atrial pressure. 2. Mild mitral and tricuspid regurgitation. 3. No significant pericardial effusion noted. Electronically signed by : Marty Jolly, 03/12/2020 15:36:25
== END ==
PROVIDERS: PCP Emergency Medicine; Visit Provider Emergency Medicine
DX: R07.9 Chest pain, unspecified (principal)
CPT/HCPCS: 78452; 93017; 93306; A9502; J2785

== ENCOUNTER → 2020-09-28 18:28 | Outpatient (CLI) | payer MEDICARE, OTHER, SELFPAY ==
[2020-09-28 20:36] LABS: Alanine Aminotransferase 12 U/L (12-78); Albumin Level 4.5 g/dl (3.5-5.0); Albumin/Globulin Ratio 1.4 (1.1-1.8); Alkaline Phosphatase 88 U/L (38-126); Anion Gap 12.1 mEq/L (5-15); Aspartate Amino Transferase 32 U/L (14-36); Bilirubin,Total 0.8 mg/dl (0.2-1.3); Blood Urea Nitrogen 20 mg/dl (7-17); Calcium 10.1 mg/dl (8.4-10.2); Carbon Dioxide 30 mmol/L (22.0-30.0); Chloride 101 mmol/L (98-107); Estimated Glomerular Filt Rate 96 ml/min (>60); GFR (African American) 116 ML/MIN (>60); Globulin 3.2 g/dL (1.3-3.2); Glucose 106 mg/dl (74-100); Potassium 4.1 mmoL/L (3.5-5.1); Sodium 139 mmol/L (136-145); Total Protein,Serum 7.7 g/dl (6.3-8.2)
[2020-09-28 21:06] LABS: Thyroid Stimulating Hormone 2.18 uIU/mL (0.465-4.68)
== END ==
PROVIDERS: Visit Provider Family Medicine
DX: I10 Essential (primary) hypertension (principal); Z79.899 Other long term (current) drug therapy
CPT/HCPCS: 80053; 84443

== ENCOUNTER 2021-02-20 10:03 | Emergency (ER) | payer MEDICARE, OTHER, SELFPAY ==
[2021-02-20 10:03] VITALS: BP 154/76; PULSE 87; RESP 20; TEMP 36.8; O2SAT 95; BMI 25.7
--- NOTE | 2021-02-20 10:24 | XR_ITS ---
PROCEDURE INFORMATION: Exam: XR Chest Exam date and time: 02/20/2021 10:24 AM Age: 80 years old Clinical indication: Cough; Additional info: Bronchitis, SOA TECHNIQUE: Imaging protocol: XR of the chest. Views: 2 views. COMPARISON: CR XR CHEST PORTABLE 01/01/2020 10:38 AM FINDINGS: Lungs: Lungs are hyperexpanded. There is no consolidation. Pleural spaces: Unremarkable. No pleural effusion. No pneumothorax. Heart/Mediastinum: There is moderate size hiatal hernia. Bones/joints: Unremarkable. IMPRESSION: 1. No acute findings. 2. COPD. 3. Moderate size hiatal hernia.
--- NOTE | 2021-02-20 10:53 | ECG_ITS ---
APPROVED REPORT Exam: Resting ECG HR:80 bpm ECG Measurements Heart Rate 80 AXES NC 150 P 72 QRSd 54 QRS 28 QT 354 T 42 QTc 408 Conclusion Sinus rhythm with premature atrial complexes Low voltage QRS Borderline ECG Electronically signed by : Esvin Singh MD 02/21/2021 09:07:25
[2021-02-20 11:01] VITALS: BP 126/60; PULSE 78; O2SAT 92
[2021-02-20 11:14] LABS: Influenza A, PCR Not Detected (NotDetected); Influenza B, PCR Not Detected (NotDetected)
[2021-02-20 11:26] LABS: Chloride 97 mmol/L (98-107)
[2021-02-20 11:27] LABS: Potassium 3.6 mmoL/L (3.5-5.1); Sodium 137 mmol/L (136-145)
[2021-02-20 11:29] LABS: Alanine Aminotransferase 16 U/L (12-78); Aspartate Amino Transferase 41 U/L (14-36); Blood Urea Nitrogen 12 mg/dl (7-17); Creatinine Clearance Estimated 47 mL/min (50-200); Estimated Glomerular Filt Rate 96 ml/min (>60); GFR (African American) 116 ML/MIN (>60)
[2021-02-20 11:30] VITALS: BP 129/63; PULSE 76; O2SAT 92
[2021-02-20 11:30] LABS: Albumin Level 4.3 g/dl (3.5-5.0); Albumin/Globulin Ratio 1.3 (1.1-1.8); Alkaline Phosphatase 82 U/L (38-126); Anion Gap 12.6 mEq/L (5-15); Basophils # 0.1 K/mm3 (0-0.2); Basophils % 1.3 % (0.1-2.0); Bilirubin,Total 0.5 mg/dl (0.2-1.3); Calcium 9.7 mg/dl (8.4-10.2); Carbon Dioxide 31 mmol/L (22.0-30.0); Eosinophils % 0.2 % (0.1-12.0); Globulin 3.3 g/dL (1.3-3.2); Glucose 117 mg/dl (74-100); Hemoglobin 13.4 g/dL (12.2-16.2); Lymphocytes # 0.9 K/mm3 (0.7-4.5); Lymphocytes % 24.9 % (10-50); Mean Corpuscular HGB Conc 32.5 g/dL (31.8-35.4); Mean Corpuscular Hemoglobin 27.3 pg (27.0-31.2); Mean Corpuscular Volume 83.8 fl (81-99); Mean Platelet Volume 8.1 fl (7.4-10.4); Monocytes # 0.4 K/mm3 (0.1-1.0); Monocytes % 9.2 % (1.7-9.3); Neutrophils # 2.4 K/mm3 (1.8-7.8); Neutrophils % 64.4 % (37.0-80.0); Platelet Count 191 K/mm3 (142-424); Total Protein,Serum 7.6 g/dl (6.3-8.2); White Blood Count 3.8 K/mm3 (4.8-10.8)
[2021-02-20 11:31] LABS: Lactic Acid 0.9 mmol/L (0.7-2.1)
[2021-02-20 11:35] LABS: Coronavirus 19, PCR Detected (NotDetected)
[2021-02-20 12:00] VITALS: BP 126/66; PULSE 72; O2SAT 91
--- NOTE | 2021-02-20 12:18 | HMH.EDGENADL ---
ED Disposition Clinical Impression: COVID-19 virus infection Disposition: Home, Self-Care Condition on Discharge: Good Additional Instructions: Outpatient monoclonal antibody infusion has been ordered. You will be called to schedule an appointment time for this treatment. Tylenol as needed for fever and pain. Rest and drink plenty of fluids. Zofran as needed for nausea. COVID-19 Isolation: Isolate yourself for a MINIMUM of 10 days from onset of symptoms: What to do: Monitor your symptoms. If you have an emergency warning sign (including trouble breathing), seek emergency medical care immediately. Stay in a separate room from other household members, if possible. Use a separate bathroom, if possible. Avoid contact with other members of the household and pets. Don?t share personal household items, like cups, towels, and utensils. Wear a mask when around other people if able. You can be around others AFTER: 10 days since symptoms first appeared AND 24 hours with no fever without the use of fever-reducing medications AND Other symptoms of COVID-19 are improving Prescriptions: Ondansetron [Zofran 4mg ODT] 4 mg PO TIDP PRN #10 tab PRN Reason: Nausea And Vomiting Transmission Status: Pending to [facility] Referrals: Edgar Weiss MD [Primary Care Provider] - - Critical Care Critical Care Time: No Attestation: On 02/20/21, the high probability of a clinically significant, sudden or life threatening deterioration of the following system(s) required my full and direct attention, intervention and personal management. The time I documented below is in addition to time spent performing reported procedures but includes the following listed in this critical care notation. Medical Decision Making - Yosef Inquiry Pt receiving controlled substance: No Vital Signs: 02/20/21 10:03 Temperature 98.3 F Temperature Source Oral Pulse Rate [Right Radial] 87 Respiratory Rate 20 Blood Pressure [Right Arm] 154/76 H Blood Pressure Mean [Right Arm] 102 Blood Pressure Source [Right Arm] Automatic Cuff Blood Pressure Position [Right Arm] Sitting 02 Sat by Pulse Oximetry 95 Oxygen Delivery Method Room Air - Lab Data Lab Results 02/20/21 10:38: WBC 3.8 L, RBC 4.90, Hgb 13.4, Hct 41.0, MCV 83.8, MCH 27.3, MCHC 32.5, RDW 14.0, Plt Count 191, MPV 8.1, Neut % (Auto) 64.4, Lymph % (Auto) 24.9, Hand % (Auto) 9.2, Eos % (Auto) 0.2, Baso % (Auto) 1.3, Neut # (Auto) 2.4, Lymph # (Auto) 0.9, Hand # (Auto) 0.4, Eos # (Auto) 0.0, Baso # (Auto) 0.1 02/20/21 10:38: Sodium 137, Potassium 3.6, Chloride 97 L, Carbon Dioxide 31 H, Anion Gap 12.6, BUN 12, Creatinine 0.60, Estimated Creat Clear 47, Estimated GFR 96, Est GFR ( Amer) 116, Glucose 117 H, Calcium 9.7, Total Bilirubin 0.5, AST 41 H, ALT 16, Alkaline Phosphatase 82, Total Protein 7.6, Albumin 4.3, Globulin 3.3 H, Albumin/Globulin Ratio 1.3 02/20/21 10:38: Lactate 0.9 02/20/21 10:38: SARS-CoV-2 (PCR) Detected A, Influenza A Untype (PCR) Not detected, Influenza Type B (PCR) Not detected Result diagrams: 02/20/21 10:38 02/20/21 10:38 Orders (Tests/Meds): ORDERS Category Date Time Status Blood Culture Stat Micro 02/20/21 10:38 Received - Radiology Data #1 Image(s): Chest Image Reviewed: Yes I reviewed the patient's radiology image, Yes I have reviewed radiologist's interpretation PROCEDURE INFORMATION: Exam: XR Chest Exam date and time: 02/20/2021 10:24 AM Age: 80 years old Clinical indication: Cough; Additional info: Bronchitis, SOA TECHNIQUE: Imaging protocol: XR of the chest. Views: 2 views. COMPARISON: CR XR CHEST PORTABLE 01/01/2020 10:38 AM FINDINGS: Lungs: Lungs are hyperexpanded. There is no consolidation. Pleural spaces: Unremarkable. No pleural effusion. No pneumothorax. Heart/Mediastinum: There is moderate size hiatal hernia. Bones/joints: Unremarkable. IMPRESSION: 1. No acute fin
[2021-02-20 12:30] VITALS: BP 134/68; PULSE 78; O2SAT 92
[2021-02-20 12:58] VITALS: BP 134/68; PULSE 77; RESP 18; TEMP 36.8; O2SAT 93
== END 2021-02-20 12:59 | disposition home or self-care (01) ==
PROVIDERS: Emergency Provider Emergency Medicine; PCP Emergency Medicine
DX: U07.1 COVID-19 (principal); J44.9 Chronic obstructive pulmonary disease, unspecified; K21.9 Gastro-esophageal reflux disease without esophagitis; I10 Essential (primary) hypertension; E78.5 Hyperlipidemia, unspecified; Z79.899 Other long term (current) drug therapy
CPT/HCPCS: 71046; 80053; 83605; 85025; 87040; 93005; 96374; 99283; C9803; J2405; U0003; U0005

== ENCOUNTER 2021-02-22 07:41 | Outpatient (CLI) | payer MEDICARE, OTHER, SELFPAY ==
[2021-02-22] VITALS (9 sets, daily range): BP systolic 104–137; BP diastolic 49–62; PULSE 71–81; RESP 18; TEMP 36.7–37.2; O2SAT 92–95
== END 2021-02-22 11:30 | disposition home or self-care (01) ==
LOC: COVID.OUT 07:43
PROVIDERS: PCP Emergency Medicine; Visit Provider Emergency Medicine
DX: U07.1 COVID-19 (principal); Z23 Encounter for immunization
CPT/HCPCS: 96365

== ENCOUNTER 2021-06-23 11:52 | Emergency (ER) | payer MEDICARE, OTHER, SELFPAY ==
--- NOTE | 2021-06-23 12:05 | XR_ITS ---
FINAL REPORT CLINICAL HISTORY: fall, left wrist pain FINDINGS: 3 views of the left wrist were obtained. There is no acute fracture or dislocation. There is moderate narrowing of the radiocarpal joint. There is chondrocalcinosis of the triangular fibrocartilage. The bones are osteopenic. There is mild soft tissue swelling over the dorsum of the wrist. IMPRESSION: Swelling with no acute bony abnormality. Reviewed, Interpreted and Dictated by Jeffrey Benton MD Transcribed by Michael Ruffin Authenticated by Jeffrey Benton MD on 06/23/2021 01:06:10 PM [facility]
[2021-06-23 12:49] VITALS: BP 184/85; PULSE 98; RESP 18; TEMP 37.2; O2SAT 95; BMI 26.6
--- NOTE | 2021-06-23 13:47 | HMH.EDUTC ---
[facility] Disposition Clinical Impression: Left hand pain Left wrist sprain Qualifiers: Encounter type: initial encounter Qualified Code(s): S63.502A - Unspecified sprain of left wrist, initial encounter Fall Qualifiers: Encounter type: initial encounter Qualified Code(s): W19.XXXA - Unspecified fall, initial encounter Disposition: Home, Self-Care Condition on Discharge: Good Instructions: Wrist Sprain, DI for Wrist Sprain, How to Prevent Falls Additional Instructions: Rest the extremity, apply ice for 15 minutes as tolerated three or four times per day, Wear the ankur wrap for compression, Elevate the extremity as tolerated while you are resting. Take tylenol for pain. Follow up with Dr. Faustin (orthopedics). Sometimes there can be fractures that don't show up well on the first set of x-rays. So, you should follow up if you continue to have symptoms. I put in a referral but you need to call his office and schedule an appointment. Follow up with your regular doctor. GO TO THE ER FOR ANY WORSENING SYMPTOMS Referrals: Edgar Weiss MD [Primary Care Provider] - Antony Faustin MD [Staff Physician] - Time of Disposition: 13:48 Medical Decision Making - Medical Records Medical records reviewed: No: I reviewed the patient's medical records. - Yosef Inquiry Pt receiving controlled substance: No Vital Signs: 06/23/21 12:49 06/23/21 13:55 Temperature 98.9 F 98.9 F Temperature Source Oral Pulse Rate 98 H Pulse Rate [Left] 98 H Respiratory Rate 18 18 Blood Pressure 184/85 H Blood Pressure [Right Arm] 184/85 H Blood Pressure Mean [Right Arm] 118 02 Sat by Pulse Oximetry 95 [facility] [place] HPI - General Stated complaint: AO- [id number] @ 1130 left wrist Time Seen by Provider: 06/23/21 12:50 Mode of Arrival: Ambulatory Source of Information: Patient, Relative Limitations: No Limitations Description of Symptoms (Recalled from Triage Doc. by RN): pt states that she was walking along the [employer] sidewalk and just tripped and fell. pt states that she is unsure if she tripped on something. she states she just fell. L wrist is swollen and a hematoma is forming. pt also has small abrasion to L eyebrow HEENT Symptoms (Recalled from RN notes): No Resp Symptoms (Recalled from RN notes): No Skin Symptoms (Recalled from RN notes): No MS Symptoms (Recalled from RN notes): Yes Functional Status (Recalled from RN notes): wnl - History of Present Illness Provider Complaint: She states that she tripped at the [employer] store and fell. She c/o left wrist pain and left hand pain. She has an abrasion on the left side of her face, but she denies hittiing her head or any neck pain. - Related Data Home Medications Medication Instructions Recorded Confirmed aspirin 81 mg tablet,delayed 81 mg PO DAILY 05/01/20 06/25/21 release Previous Rx's Medication Instructions Recorded atorvastatin 10 mg tablet See Rx Instructions .ROUTE 09/07/20 .COMPLEX #90 tab omeprazole 20 mg capsule,delayed See Rx Instructions .ROUTE 09/07/20 release .COMPLEX #90 cap amlodipine 5 mg tablet 5 mg PO DAILY #90 tab 09/28/20 losartan 100 See Rx Instructions .ROUTE 11/04/20 mg-hydrochlorothiazide 25 mg tablet .COMPLEX #90 tablet benzonatate 200 mg capsule 200 mg PO TID PRN #30 cap 02/15/21 cholecalciferol (vitamin D3) 25 See Rx Instructions .ROUTE 03/23/21 mcg (1,000 unit) tablet .COMPLEX #90 tablet potassium chloride 10 mEq See Rx Instructions .ROUTE 05/04/21 capsule,extended release .COMPLEX #90 cap acetaminophen 300 mg-codeine 30 mg 1 tab PO TID PRN #21 tab 06/25/21 tablet Allergies Allergy/AdvReac Type Severity Reaction Status Date / Time No Known Allergies Allergy Verified 06/25/21 14:32 - Worker's Comp Is this a Worker's Comp case?: No [facility] History - Hepatitis A Screen Attestation statement:: This patient has been screened for Hepatitis A risk factors. I have reviewed the patient's past medical h
[2021-06-23 13:55] VITALS: BP 184/85; PULSE 98; RESP 18; TEMP 37.2
== END 2021-06-23 13:56 | disposition home or self-care (01) ==
LOC: UTC 12:02
PROVIDERS: Emergency Provider Nurse Practitioner Family; PCP Emergency Medicine
DX: S63.502A Unspecified sprain of left wrist, initial encounter (principal); M79.642 Pain in left hand; S00.212A Abrasion of left eyelid and periocular area, initial encounter; E87.6 Hypokalemia; K21.9 Gastro-esophageal reflux disease without esophagitis; E78.5 Hyperlipidemia, unspecified; E55.9 Vitamin D deficiency, unspecified; M19.90 Unspecified osteoarthritis, unspecified site; Z79.1 Long term (current) use of non-steroidal anti-inflammatories (NSAID); Z79.51 Long term (current) use of inhaled steroids; Z79.899 Other long term (current) drug therapy; W01.0XXA Fall on same level from slipping, tripping and stumbling without subsequent striking against object, initial encounter; Y92.480 Sidewalk as the place of occurrence of the external cause
CPT/HCPCS: 73110; 99213; G0463

== ENCOUNTER → 2022-06-16 11:59 | Outpatient (CLI) | payer MEDICARE, OTHER, SELFPAY ==
--- NOTE | 2022-06-16 12:03 | XR_ITS ---
FINAL REPORT CLINICAL HISTORY: Left wrist pain COMPARISON: 06/23/2021 FINDINGS: LEFT WRIST Three views demonstrate no acute fracture or dislocation. [id number] degenerative change. Soft tissue calcifications. IMPRESSION: No acute bony abnormality. Reviewed, Interpreted and Dictated by Jesus Sanchez III, MD Transcribed by Estephanie Nugent Authenticated and . [facility]
--- NOTE | 2022-06-16 12:03 | XR_ITS ---
FINAL REPORT CLINICAL HISTORY: Right Wrist pain COMPARISON: None FINDINGS: RIGHT WRIST Three views demonstrate no acute fracture or dislocation. [id number] degenerative change. Soft tissue calcifications. IMPRESSION: No acute bony abnormality. Reviewed, Interpreted and Dictated by Jesus Sanchez III, MD Transcribed by Estephanie Nugent Authenticated and . [facility]
== END ==
PROVIDERS: PCP Emergency Medicine; Visit Provider Orthopaedic Surgery
DX: G56.03 Carpal tunnel syndrome, bilateral upper limbs (principal)
CPT/HCPCS: 73110

== ENCOUNTER 2022-06-17 13:30 | Outpatient (RCR) | payer MEDICARE, OTHER, SELFPAY | END 2022-06-17 14:30 | disposition home or self-care (01) | LOC: OT 13:30 | PROVIDERS: Visit Provider Orthopaedic Surgery | DX: G56.03 Carpal tunnel syndrome, bilateral upper limbs (principal) | CPT/HCPCS: 97763 ==

== ENCOUNTER 2022-07-14 10:00 | Outpatient (RCR) | payer MEDICARE, OTHER, SELFPAY ==
--- NOTE | 2022-06-24 08:53 | HMH.OTOPEV ---
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 Pt reports she has been experiencing symptoms of carpal tunnel for over a year. Her right hand is more symptomatic than left. She is right hand dominant. Pt received an injection by ortho ~1 week ago and she reports improved pain and symptoms. She has also been wearing bilateral wrist braces while sleeping. She returns to ortho on 07/15/22 for re- evaluation. Pt demonstrates with a SLIGHT decline in AROM and strength at bilateral wrists. 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 Pt will continue to be seen in order to address all deficits. Current 9 hole peg test results: R hand: 24 seconds L hand: 24 seconds R hand optical glass inspector strength ST lbs R hand optical glass inspector strength LT lbs L hand optical glass inspector strength ST lbs L hand optical glass inspector strength LT lbs AROM Goals Right wrist Flex: 70 degrees Ext: 65 degrees UD: 30 degrees Left wrist: Flex: 70 degrees Ext: 70 degrees Chief Complaint Pain,Stiff,Paresthesia, Weakness,Decreased Nutritional Chemist Strength Symptom Type Ache,Throb,Dull,Numbness, Tingling Sy
== END 2022-07-14 10:05 | disposition home or self-care (01) ==
LOC: OT 10:00
PROVIDERS: PCP Emergency Medicine; Visit Provider Orthopaedic Surgery
DX: G56.03 Carpal tunnel syndrome, bilateral upper limbs (principal)
CPT/HCPCS: 97010; 97014; 97035; 97110; 97140; 97166; 97530; G0283

== ENCOUNTER 2022-12-06 13:03 | Emergency (ER) | payer MEDICARE, OTHER, SELFPAY ==
[2022-12-06 13:20] VITALS: BP 163/72; PULSE 75; RESP 18; TEMP 36.8; O2SAT 98; BMI 28.3
[2022-12-06 13:34] VITALS: BP 163/72; PULSE 75; RESP 18; TEMP 36.8; O2SAT 98
--- NOTE | 2022-12-06 13:48 | EXP.UTC ---
Discharge Plan Disposition Patient Disposition: Home, Self-Care Condition: Good Prescriptions Prescriptions: New amoxicillin 500 mg capsule 500 mg PO TID 7 Days Qty: 21 0RF fluticasone propionate [Flonase Allergy Relief] 50 mcg/actuation spray,suspension 1 - 2 spray intranasal DAILY Qty: 16 0RF Rx Instructions: administer into each nostril daily No Action acetaminophen-codeine 300-30 mg tablet 1 tab PO TID PRN (Reason: pain) Qty: 21 0RF aspirin [Adult Aspirin Regimen] 81 mg tablet,delayed release (DR/EC) 81 mg PO DAILY cholecalciferol (vitamin D3) 25 mcg (1,000 unit) tablet See Rx Instructions .ROUTE .COMPLEX Qty: 90 3RF Dose Instruction: TAKE ONE TABLET BY MOUTH EVERY DAY Rx Instructions: TAKE ONE TABLET BY MOUTH EVERY DAY atorvastatin 10 mg tablet See Rx Instructions .ROUTE .COMPLEX Qty: 90 3RF Dose Instruction: TAKE ONE TABLET BY MOUTH EVERY DAY FOR cholesterol Rx Instructions: TAKE ONE TABLET BY MOUTH EVERY DAY FOR cholesterol amlodipine 5 mg tablet See Rx Instructions .ROUTE .COMPLEX Qty: 90 3RF Dose Instruction: TAKE ONE TABLET BY MOUTH EVERY DAY Rx Instructions: TAKE ONE TABLET BY MOUTH EVERY DAY omeprazole 20 mg capsule,delayed release(DR/EC) See Rx Instructions .ROUTE .COMPLEX Qty: 90 3RF Dose Instruction: TAKE ONE CAPSULE BY MOUTH EVERY DAY FOR GERD Rx Instructions: TAKE ONE CAPSULE BY MOUTH EVERY DAY FOR GERD potassium chloride 10 mEq capsule, extended release See Rx Instructions .ROUTE .COMPLEX Qty: 90 5RF Dose Instruction: TAKE ONE CAPSULE BY MOUTH THREE TIMES DAILY Rx Instructions: TAKE ONE CAPSULE BY MOUTH THREE TIMES DAILY losartan-hydrochlorothiazide 100-25 mg tablet See Rx Instructions .ROUTE .COMPLEX Qty: 90 3RF Dose Instruction: TAKE ONE TABLET BY MOUTH EVERY DAY FOR BLOOD PRESSURE Rx Instructions: TAKE ONE TABLET BY MOUTH EVERY DAY FOR BLOOD PRESSURE Referrals Follow up/Referrals: Edgar Weiss MD [Primary Care Provider] - See instructions Activity Restrictions/Add. Instructions Additional Instructions/Restrictions: *Monitor Temp, Over the counter Motrin or Tylenol as directed/as needed Tylenol every 4 hours and Motrin every 6 hours (as long as your family doctor has told you that you can take it) for fever or pain. and straight to ER if unable to lower temp less than 101.0 after medication given *Sleep elevated *Humidifier/Vaporizer *Flonase 2 sprays in each nostril daily but be aware that it may take 2-3 days before you notice improvement Follow up IMMEDIATELY for new or worsening symptoms or no Noticeable improvement over the next 48-72 hours. 911 for difficulty breathing or swallowing Clinical Impressions Clinical Impression: Otitis media Qualifiers: Otitis media type: unspecified Laterality: right Qualified Code(s): H66.91 - Otitis media, unspecified, right ear Instructions Patient Instructions: Middle Ear Infection, Amoxicillin Discharge ED Provider: Mckenzie Perez [facility] [place] H[place] General Stated complaint: Rt ear pain Mode of Arrival: Ambulatory Source of Information: Patient Limitations: No Limitations Time Seen by Provider: 12/06/22 13:48 Description of Symptoms (Recalled from Triage Doc. by RN): PATIENT C/O RIGHT EAR PAIN X 2 DAYS HEENT Symptoms (Recalled from RN notes): Yes Resp Symptoms (Recalled from RN notes): No Skin Symptoms (Recalled from RN notes): No MS Symptoms (Recalled from RN notes): No Functional Status (Recalled from RN notes): WNL History of Present Illness Provider Complaint: Patient states that she has been having pain and pressure in her right ear for about 2 weeks States that for the last couple of days it has got worse so today she came in to get it cheked Related Data Home Medications Medication Instructions Recorded Confirmed aspirin 81 mg tablet,delayed 81 mg PO DAILY 05/01/20 11/30/22 release (
== END 2022-12-06 13:59 | disposition home or self-care (01) ==
PROVIDERS: Emergency Provider Nurse Practitioner; PCP Emergency Medicine
DX: H66.91 Otitis media, unspecified, right ear (principal); I10 Essential (primary) hypertension; E78.5 Hyperlipidemia, unspecified; K21.9 Gastro-esophageal reflux disease without esophagitis; E55.9 Vitamin D deficiency, unspecified; M19.90 Unspecified osteoarthritis, unspecified site
CPT/HCPCS: 99212; 99214; G0463

== ENCOUNTER 2023-04-25 12:42 | Emergency (ER) | payer MEDICARE, OTHER, SELFPAY ==
[2023-04-25 12:55] VITALS: BP 179/71; PULSE 89; RESP 22; TEMP 37.1; O2SAT 96; BMI 26.5
--- NOTE | 2023-04-25 13:17 | ED_ITS ---
Discharge Plan Disposition Patient Disposition: Home, Self-Care Condition: Good Prescriptions Prescriptions: New amoxicillin 500 mg capsule 500 mg PO TID 7 Days Qty: 21 0RF benzonatate 100 mg capsule 100 mg PO TID PRN (Reason: cough) Qty: 30 0RF No Action acetaminophen-codeine 300-30 mg tablet 1 tab PO TID PRN (Reason: pain) Qty: 21 0RF aspirin [Adult Aspirin Regimen] 81 mg tablet,delayed release (DR/EC) 81 mg PO DAILY atorvastatin 10 mg tablet See Rx Instructions .ROUTE .COMPLEX Qty: 90 3RF Dose Instruction: TAKE ONE TABLET BY MOUTH EVERY DAY FOR cholesterol Rx Instructions: TAKE ONE TABLET BY MOUTH EVERY DAY FOR cholesterol amlodipine 5 mg tablet See Rx Instructions .ROUTE .COMPLEX Qty: 90 3RF Dose Instruction: TAKE ONE TABLET BY MOUTH EVERY DAY Rx Instructions: TAKE ONE TABLET BY MOUTH EVERY DAY omeprazole 20 mg capsule,delayed release(DR/EC) See Rx Instructions .ROUTE .COMPLEX Qty: 90 3RF Dose Instruction: TAKE ONE CAPSULE BY MOUTH EVERY DAY FOR GERD Rx Instructions: TAKE ONE CAPSULE BY MOUTH EVERY DAY FOR GERD potassium chloride 10 mEq capsule, extended release See Rx Instructions .ROUTE .COMPLEX Qty: 90 5RF Dose Instruction: TAKE ONE CAPSULE BY MOUTH THREE TIMES DAILY Rx Instructions: TAKE ONE CAPSULE BY MOUTH THREE TIMES DAILY losartan-hydrochlorothiazide 100-25 mg tablet See Rx Instructions .ROUTE .COMPLEX Qty: 90 3RF Dose Instruction: TAKE ONE TABLET BY MOUTH EVERY DAY FOR BLOOD PRESSURE Rx Instructions: TAKE ONE TABLET BY MOUTH EVERY DAY FOR BLOOD PRESSURE cholecalciferol (vitamin D3) 25 mcg (1,000 unit) tablet See Rx Instructions .ROUTE .COMPLEX Qty: 90 3RF Dose Instruction: TAKE ONE TABLET BY MOUTH EVERY DAY Rx Instructions: TAKE ONE TABLET BY MOUTH EVERY DAY amoxicillin 500 mg capsule 500 mg PO TID 7 Days Qty: 21 0RF fluticasone propionate [Flonase Allergy Relief] 50 mcg/actuation spray,suspension 1 - 2 spray intranasal DAILY Qty: 16 0RF Rx Instructions: administer into each nostril daily Referrals Follow up/Referrals: Reji Clifford APRN [Primary Care Provider] - See instructions Activity Restrictions/Add. Instructions Additional Instructions/Restrictions: *Monitor Temp, Over the counter Motrin or Tylenol as directed/as needed Tylenol every 4 hours and Motrin every 6 hours (as long as your family doctor has told you that you can take it) for fever or pain. and straight to ER if unable to lower temp less than 101.0 after medication given *Warm salt water gargles may help to soothe the throat *Throat Lozenges? *Warm fluids like tea with honey may help to soothe the throat? *Sleep elevated *Humidifier/Vaporizer *Your throat swab was sent for culture. Those results are typically sent to your primary care. Be sure to follow up in 2-3 days with your family doctor/primary care physician if no improvement so they can review those result and treat if necessary. If you don?t have a primary care doctor, I recommend you get one but in the mean time, you will have to return to a walk in clinic Follow up IMMEDIATELY for new or worsening symptoms or no Noticeable improvement over the next 48-72 hours. 911 for difficulty breathing or swallowing Clinical Impressions Clinical Impression: Sinusitis Qualifiers: Sinusitis location: unspecified location Chronicity: unspecified Qualified Code(s): J32.9 - Chronic sinusitis, unspecified Instructions Patient Instructions: DI for Sinusitis, Cough Discharge ED Provider: Mckenzie Perez [facility] General Stated complaint: sore throat, cough, headache Mode of Arrival: Ambulatory Source of Information: Patient Limitations: No Limitations Time Seen by Provider: 04/25/23 13:17 Description of Symptoms (Recalled from Triage Doc. by RN): PATIENT C/O DRY COUGH, HEADACHE, FEVER AND CHILLS THAT STARTED MONDAY HE Symptoms (Recalled from RN notes): Yes Resp Symptoms (Recalled from RN notes): Yes Skin Symptoms (Recalled from RN notes): No MS Symptoms (Recalled from RN notes): No Functional Status (Recalled from RN notes): WNL History of Present Illness Provider Complaint: Patient states that she has been having nasal congestion, dry cough, chills and headache for the last few days and feeling like her right ear is stopped up and hurting States today she was still not feeling the best so she came in Related Data Home Medications Medication Instructions Recorded Confirmed aspirin 81 mg tablet,delayed 81 mg PO DAILY 05/01/20 11/30/22 release (Adult Aspirin Regimen) Previous Rx's Medication Instructions Recorded acetaminophen 300 mg-codeine 30 mg 1 tab PO TID PRN pain #21 tabs 06/25/21 tablet amlodipine 5 mg tablet See Rx Instructions .Route 09/09/22 .COMPLEX #90 tabs atorvastatin 10 mg tablet See Rx Instructions .Route 09/09/22 .COMPLEX #90 tabs omeprazole 20 mg capsule,delayed See Rx Instructions .Route 10/14/22 release .COMPLEX #90 caps potassium chloride 10 mEq See Rx Instructions .Route 11/08/22 capsule,extended release .COMPLEX #90 caps losartan 100 See Rx Instructions .Route 11/28/22 mg-hydrochlorothiazide 25 mg tablet .COMPLEX #90 tabs amoxicillin 500 mg capsule 500 mg PO TID 7 days #21 caps 12/06/22 fluticasone propionate 50 1 - 2 spray intranasal DAILY #16 12/06/22 mcg/actuation nasal grams spray,suspension (Flonase Allergy Relief) cholecalciferol (vitamin D3) 25 See Rx Instructions .Route 03/10/23 mcg (1,000 unit) tablet .COMPLEX #90 tabs amoxicillin 500 mg capsule 500 mg PO TID 7 days #21 caps 04/25/23 benzonatate 100 mg capsule 100 mg PO TID PRN cough #30 caps 04/25/23 Allergies Allergy/AdvReac Type Severity Reaction Status Date / Time No Known Allergies Allergy Verified 11/30/22 10:22 Worker's Comp Is this a Worker's Comp case?: No [facility] Disclaimer: The information contained in this section may have been updated after the patient was seen, as this information can be updated by other users. Medical History DJD (degenerative joint disease) GERD (gastroesophageal reflux disease) Hyperlipidemia Hypertension Vitamin D deficiency Social History Smoking Status: Never smoker alcohol intake: never substance use type: denies use current occupational status: other Travel in the last 8 weeks: None household members: none housing: house caffeine: Yes ROS Obtained: Yes All systems reviewed & no additional complaints except as documented and Yes Systems reviewed as appropriate & no additional complaints except as documented Constitutional Constitutional: Reports system reviewed and no additional complaints, except as documented, Reports as per HPI, Reports body ache, Reports chills, Reports fever(s) and Reports headache(s) ENT Ears, Nose, Mouth, and Throat: Reports system reviewed and no additional complaints, except as documented, Reports as per HPI, Reports otalgia, Reports headache(s) and Reports sore throat Cardiovascular Cardiovascular: Reports system reviewed and no additional complaints, except as documented and Reports as per HPI Respiratory Respiratory: Reports system reviewed and no additional complaints, except as documented and Reports as per HPI Gastrointestinal Gastrointestingal: Reports system reviewed and no additional complaints, except as documented and as per HPI Neurologic Neurologic: Reports headache(s) Physical Exam General General appearance: alert and in no apparent distress ENT ENT exam: Present mucous membranes moist Expanded ENT Exam TM/Canal exam: Right TM: erythema (mild) and bulging Nose exam: Present sinus tenderness Throat exam: Present other (Pharyngeal erythema noted with PND) Respiratory Respiratory exam: Present normal lung sounds bilaterally; Absent respiratory distress or wheezes Cardiovascular Cardiovascular exam: Present regular rate, normal rhythm and normal heart sounds Neurological Exam Neurological exam: Present alert, oriented X3 and normal gait Medical Decision Making Yosef Inquiry Pt receiving controlled substance: No Yosef was queried for this patient: No Vital Signs: 04/25/23 12:55 Temperature 98.8 F Temperature Source Oral Pulse Rate [Left Brachial] 89 Respiratory Rate 22 Blood Pressure [Left Arm] 179/71 H Blood Pressure Mean [Left Arm] 107 Blood Pressure Source [Left Arm] Automatic Cuff Blood Pressure Position [Left Arm] Sitting 02 Sat by Pulse Oximetry 96 Oxygen Delivery Method Room Air Lab Data Lab results reviewed: Yes I reviewed the patient's lab results.
[2023-04-25 13:25] LABS: UTC Strep Screen (Rapid) Negative (Negative)
[2023-04-25 13:26] LABS: UTC Influenza A Antigen Negative (Negative); UTC Influenza B Antigen Negative (Negative)
[2023-04-25 13:28] VITALS: BP 179/71; PULSE 89; RESP 22; TEMP 37.1; O2SAT 96
== END 2023-04-25 13:30 | disposition home or self-care (01) ==
PROVIDERS: Emergency Provider Nurse Practitioner; PCP Nurse Practitioner Family
DX: J01.90 Acute sinusitis, unspecified (principal); R05.9 Cough, unspecified; R51.9 Headache, unspecified; R50.9 Fever, unspecified; H92.01 Otalgia, right ear; R07.0 Pain in throat; K21.9 Gastro-esophageal reflux disease without esophagitis; I10 Essential (primary) hypertension; E78.5 Hyperlipidemia, unspecified
CPT/HCPCS: 87804; 87880; 99212; 99214; G0463

== ENCOUNTER 2023-05-16 21:36 | Outpatient (CLI) | payer MEDICARE, OTHER, SELFPAY ==
[2023-05-16 18:44] LABS: Hemoglobin 15.2 g/dL (12.2-16.2); Lymphocytes % 19.8 % (10-50); Mean Corpuscular HGB Conc 32.4 g/dL (31.8-35.4); Mean Corpuscular Hemoglobin 29.1 pg (27.0-31.2); Mean Platelet Volume 9.9 fl (7.4-10.4); Neutrophils % 71.7 % (37.0-80.0); Platelet Count 248 K/mm3 (142-424); Red Blood Count 5.22 M/mm3 (4.20-5.40); Red Cell Distribution Width 13.8 % (11.5-17.5); White Blood Count 7.4 K/mm3 (4.8-10.8)
[2023-05-16 18:45] LABS: Basophils # 0.1 K/mm3 (0-0.2); Basophils % 1.5 % (0.1-2.0); Eosinophils # 0.1 K/mm3 (0.0-0.4); Eosinophils % 0.9 % (0.1-12.0); Lymphocytes # 1.5 K/mm3 (0.7-4.5); Monocytes # 0.5 K/mm3 (0.1-1.0); Monocytes % 6.1 % (1.7-9.3); Neutrophils # 5.3 K/mm3 (1.8-7.8)
== END 2023-05-16 23:59 ==
PROVIDERS: PCP Internal Medicine; Visit Provider Internal Medicine
DX: R71.8 Other abnormality of red blood cells (principal); E87.6 Hypokalemia; Z79.899 Other long term (current) drug therapy
CPT/HCPCS: 85025

== ENCOUNTER 2023-05-17 10:37 | Outpatient (CLI) | payer MEDICARE, OTHER, SELFPAY ==
[2023-05-17 12:48] LABS: Chloride 100 mmol/L (98-107); Sodium 135 mmol/L (136-145)
[2023-05-17 12:51] LABS: Blood Urea Nitrogen 17 mg/dl (7-17); Calcium 10.6 mg/dl (8.4-10.2); Carbon Dioxide 28 mmol/L (22.0-30.0); Estimated Glomerular Filt Rate 95 ml/min (>60); GFR (African American) 116 ML/MIN (>60); Glucose 100 mg/dl (74-100)
== END 2023-05-17 23:59 ==
PROVIDERS: PCP Internal Medicine; Visit Provider Internal Medicine
DX: E87.6 Hypokalemia (principal)
CPT/HCPCS: 36415; 80048

== ENCOUNTER 2023-07-31 10:20 | Emergency (ER) | payer MEDICARE, OTHER, SELFPAY ==
[2023-07-31 10:40] VITALS: BP 187/77; PULSE 120; RESP 19; TEMP 36.6; O2SAT 96; BMI 26.8
--- NOTE | 2023-07-31 11:04 | ED_ITS ---
Discharge Plan Disposition Patient Disposition: Home, Self-Care Condition: Good Prescriptions Prescriptions: New ciprofloxacin HCl 500 mg tablet 500 mg PO Q12H Qty: 20 0RF benzonatate 100 mg capsule 100 mg PO TID PRN (Reason: cough) Qty: 30 0RF methylprednisolone [Medrol (Dony)] 4 mg tablets,dose pack See Rx Instructions .ROUTE .COMPLEX 6 Days Qty: 21 0RF Rx Instructions: 4 mg orally ;Medrol dose taper dony No Action aspirin [Adult Aspirin Regimen] 81 mg tablet,delayed release (DR/EC) 81 mg PO DAILY potassium chloride 10 mEq capsule, extended release 10 meq PO DAILY Patient Comments: TAKE ONE CAPSULE BY MOUTH THREE TIMES DAILY atorvastatin 10 mg tablet 10 mg PO DAILY Patient Comments: TAKE ONE TABLET BY MOUTH EVERY DAY FOR cholesterol amlodipine 5 mg tablet 5 mg PO DAILY Patient Comments: TAKE ONE TABLET BY MOUTH EVERY DAY losartan-hydrochlorothiazide 100-25 mg tablet 1 tab PO DAILY Patient Comments: TAKE ONE TABLET BY MOUTH EVERY DAY FOR BLOOD PRESSURE omeprazole 20 mg capsule,delayed release(DR/EC) 20 mg PO DAILY Patient Comments: TAKE ONE CAPSULE BY MOUTH EVERY DAY FOR gerd cholecalciferol (vitamin D3) 25 mcg (1,000 unit) tablet 25 mcg PO DAILY Patient Comments: TAKE ONE TABLET BY MOUTH EVERY DAY Referrals Follow up/Referrals: Igor Gottlieb DO [Primary Care Provider] - See instructions Clinical Impressions Clinical Impression: Acute lower respiratory infection Urinary tract infection Qualifiers: Urinary tract infection type: acute cystitis Instructions Patient Instructions: DI for Urinary Retention in Women, DI for Acute Bronchitis Discharge ED Provider: Marissa De La Cruz [facility] General Stated complaint: cough painful urination Mode of Arrival: Ambulatory Source of Information: Patient Limitations: No Limitations Time Seen by Provider: 07/31/23 11:03 Description of Symptoms (Recalled from Triage Doc. by RN): PATIENT C/O BURNING WITH URINATION MOST MORNINGS THAT COMES AND GOES AND COUGH FOR APPROX 1 WEEK HEENT Symptoms (Recalled from RN notes): No Resp Symptoms (Recalled from RN notes): Yes Skin Symptoms (Recalled from RN notes): No MS Symptoms (Recalled from RN notes): No Functional Status (Recalled from RN notes): WNL History of Present Illness Provider Complaint: Pt complains of burning with urination and cough for 1 week. She relates that she has taken Mucinex and Robitussin for her symptoms. Related Data Home Medications Medication Instructions Recorded Confirmed aspirin 81 mg tablet,delayed 81 mg PO DAILY 05/01/20 07/31/23 release (Adult Aspirin Regimen) amlodipine 5 mg tablet 5 mg PO DAILY 07/31/23 07/31/23 atorvastatin 10 mg tablet 10 mg PO DAILY 07/31/23 07/31/23 cholecalciferol (vitamin D3) 25 25 mcg PO DAILY 07/31/23 07/31/23 mcg (1,000 unit) tablet losartan 100 1 tab PO DAILY 07/31/23 07/31/23 mg-hydrochlorothiazide 25 mg tablet omeprazole 20 mg capsule,delayed 20 mg PO DAILY 07/31/23 07/31/23 release potassium chloride 10 mEq 10 meq PO DAILY 07/31/23 07/31/23 capsule,extended release Previous Rx's Medication Instructions Recorded benzonatate 100 mg capsule 100 mg PO TID PRN cough #30 caps 07/31/23 ciprofloxacin HCl 500 mg tablet 500 mg PO Q12H #20 tabs 07/31/23 methylprednisolone 4 mg tablets in See Rx Instructions .Route 07/31/23 a dose pack (Medrol (Dony)) .COMPLEX 6 days #21 tabs Allergies Allergy/AdvReac Type Severity Reaction Status Date / Time No Known Allergies Allergy Verified 07/14/23 12:52 Worker's Comp Is this a Worker's Comp case?: No [facility] Disclaimer: The information contained in this section may have been updated after the patient was seen, as this information can be updated by other users. Medical History (Updated 07/31/23 @ 11:34 by Marissa De La Cruz APRN) COPD (chronic obstructive pulmonary disease) GERD (gastroesophageal reflux disease) DJD (degenerative joint disease) Hyperlipidemia Hypertension Vitamin D deficiency Social History Smoking Status: Never smoker alcohol intake: never substance use type: denies use current occupational status: other Travel in the last 8 weeks: None household members: none housing: house caffeine: Yes ROS Obtained: Yes All systems reviewed & no additional complaints except as documented Constitutional Constitutional: Reports system reviewed and no additional complaints, except as documented and Reports malaise Eyes Eyes: Reports system reviewed and no additional complaints, except as documented ENT Ears, Nose, Mouth, and Throat: Reports system reviewed and no additional complai nts, except as documented and Reports nasal discharge Cardiovascular Cardiovascular: Reports system reviewed and no additional complaints, except as documented Respiratory Respiratory: Reports system reviewed and no additional complaints, except as documented and Reports non-productive cough Gastrointestinal Gastrointestingal: Reports system reviewed and no additional complaints, except as documented Genitourinary Female Genitourinary: Reports system reviewed and no additional complaints, except as documented, Reports dysuria, Reports urinary frequency and Reports urinary urgency Musculoskeletal Musculoskeletal: Reports system reviewed and no additional complaints, except as documented Integumentary/Breasts Skin/Breast: Reports system reviewed and no additional complaints, except as documented Neurologic Neurologic: Reports system reviewed and no additional complaints, except as documented Endocrine Endocrine: Reports system reviewed and no additional complaints, except as documented Hematologic/Lymphatic Henatologic/Lymphatic: Reports system reviewed and no additional complaints, except as documented Allergic/Immunologic Allergic/Immunologic: Reports system reviewed and no additional complaints, except as documented Physical Exam General General appearance: alert and in no apparent distress Head Head exam: atraumatic and normocephalic Eye Eye exam: Present normal appearance ENT ENT exam: Present normal exam and normal oropharynx Neck Neck exam: Present normal inspection Chest Chest inspection: Present normal inspection and symmetric chest wall rise Respiratory Respiratory exam: Present normal lung sounds bilaterally Cardiovascular Cardiovascular exam: Present regular rate Abdominal Exam Abdominal exam: Present soft, tenderness and normal bowel sounds Abdominal tenderness: Present suprapubic Extremities Exam Extremities exam: Present normal inspection Back Exam Back exam: Present normal inspection; Absent CVA tenderness (R) or CVA tenderness (L) Neurological Exam Neurological exam: Present alert and oriented X3 Psychiatric Psychiatric exam: Present normal affect and normal mood Skin Skin exam: Present warm, dry and intact Lymphatic Lymphatic Findings: no adenopathy Medical Decision Making Yosef Inquiry Pt receiving controlled substance: No Yosef was queried for this patient: No Vital Signs: 07/31/23 10:40 Temperature 97.9 F Temperature Source Oral Pulse Rate [Left Brachial] 120 H Respiratory Rate 19 Blood Pressure [Left Arm] 187/77 H Blood Pressure Mean [Left Arm] 113 Blood Pressure Source [Left Arm] Automatic Cuff Blood Pressure Position [Left Arm] Sitting 02 Sat by Pulse Oximetry 96 Oxygen Delivery Method Room Air
[2023-07-31 11:28] LABS: Apearance,Urine Cloudy (Clear); Bilirubin,Urine Negative (Negative); Blood, Urine 1+ (Negative); Color,Urine Yellow (Yellow); Glucose,Urine (UA) Negative (Negative); Ketones,Urine Negative (Negative); Protein,Urine Trace (Negative); UTC Leukocyte Esterase,Urine 1+ (Negative); UTC Nitrate,Urine Positive (Negative); Urobilinogen,Urine 1 EU/dl (0.2)
[2023-07-31 11:34] VITALS: BP 187/77; PULSE 120; RESP 19; TEMP 36.6; O2SAT 96
== END 2023-07-31 11:38 | disposition home or self-care (01) ==
PROVIDERS: Emergency Provider Nurse Practitioner Family; PCP Internal Medicine
DX: N39.0 Urinary tract infection, site not specified (principal); B96.29 Other Escherichia coli [E. coli] as the cause of diseases classified elsewhere; R30.0 Dysuria; R05.9 Cough, unspecified; J06.9 Acute upper respiratory infection, unspecified
CPT/HCPCS: 81003; 87086; 87088; 87186; 99212; 99214; G0463

== ENCOUNTER 2024-01-11 09:26 | Outpatient (CLI) | payer MEDICARE, OTHER, SELFPAY ==
--- NOTE | 2024-01-11 09:29 | XR_ITS ---
FINAL REPORT CLINICAL HISTORY: wrist pain, carpal tunnel COMPARISON: 06/16/2022 FINDINGS: RIGHT WRIST Three views demonstrate no acute fracture or dislocation. There are mild and moderate degenerative changes. Soft tissue calcifications are noted. There is evidence of osteopenia. IMPRESSION: Degenerative changes without acute bony abnormality. Reviewed, Interpreted and Dictated by Jesus Sanchez III, MD Transcribed by Kelly Laws Authenticated and [facility]
== END 2024-01-11 23:59 | disposition home or self-care (01) ==
LOC: RAD 09:27
PROVIDERS: PCP Nurse Practitioner Family; Visit Provider Surgery
DX: M25.531 Pain in right wrist (principal)
CPT/HCPCS: 73110

== ENCOUNTER 2024-01-26 11:15 | Outpatient (CLI) | payer MEDICARE, OTHER, SELFPAY ==
--- NOTE | 2024-01-26 11:41 | ECG_ITS ---
APPROVED REPORT Exam: Resting ECG HR:75 bpm ECG Measurements Heart Rate 75 AXES VA 157 P 74 QRSd 70 QRS 59 QT 294 T 57 QTc 322 Conclusion SINUS RHYTHM NONSPECIFIC T-WAVE ABNORMALITY BORDERLINE ECG INTERPRETATION BASED ON A DEFAULT AGE OF 40 YEARS UNCONFIRMED REPORT Electronically signed by : Esvin Singh MD 01/28/2024 11:18:24
== END 2024-01-26 23:59 | disposition home or self-care (01) ==
LOC: PREOP 11:16
PROVIDERS: PCP Nurse Practitioner Family; Visit Provider Orthopaedic Surgery
DX: Z01.810 Encounter for preprocedural cardiovascular examination (principal); R94.31 Abnormal electrocardiogram [ECG] [EKG]
CPT/HCPCS: 93005

== ENCOUNTER 2024-01-29 07:51 | Day surgery (SDC) | payer MEDICARE, OTHER, SELFPAY ==
[2024-01-26 11:36] VITALS: BMI 33.5
[2024-01-26 11:56] LABS: Chloride 103 mmol/L (98-107)
[2024-01-26 11:57] LABS: Potassium 3.5 mmoL/L (3.5-5.1); Sodium 137 mmol/L (136-145)
[2024-01-26 11:59] LABS: Blood Urea Nitrogen 17 mg/dl (7-17); Creatinine Clearance Estimated 58 mL/min (50-200); Estimated Glomerular Filt Rate 68 ml/min (>60); GFR (African American) 83 ML/MIN (>60)
[2024-01-26 12:00] LABS: Anion Gap 11.5 mEq/L (5-15); Calcium 10.3 mg/dl (8.4-10.2); Carbon Dioxide 26 mmol/L (22.0-30.0); Glucose 106 mg/dl (74-100)
[2024-01-26 12:05] LABS: Basophils # 0.1 K/mm3 (0-0.2); Basophils % 1.2 % (0.1-2.0); Eosinophils % 0.6 % (0.1-12.0); Hematocrit 40.2 % (37.0-47.0); Hemoglobin 13.8 g/dL (12.2-16.2); Lymphocytes # 2.1 K/mm3 (0.7-4.5); Lymphocytes % 27.9 % (10-50); Mean Corpuscular HGB Conc 34.4 g/dL (31.8-35.4); Mean Corpuscular Hemoglobin 28.1 pg (27.0-31.2); Mean Corpuscular Volume 81.7 fl (81-99); Mean Platelet Volume 7.1 fl (7.4-10.4); Monocytes # 0.4 K/mm3 (0.1-1.0); Monocytes % 5.7 % (1.7-9.3); Neutrophils # 4.9 K/mm3 (1.8-7.8); Neutrophils % 64.7 % (37.0-80.0); Platelet Count 249 K/mm3 (142-424); Red Blood Count 4.92 M/mm3 (4.20-5.40); Red Cell Distribution Width 14.5 % (11.5-17.5); White Blood Count 7.6 K/mm3 (4.8-10.8)
[2024-01-29] MEDS: LACTATED RINGERS 1000ML 1,000 ML 100 ML IV (08:31)
[2024-01-29 08:41] VITALS: BP 156/74; PULSE 95; RESP 18; TEMP 36.6; O2SAT 97
[2024-01-29 08:52] LABS: POC Glucose,Bedside 116 (70-110)
--- NOTE | 2024-01-29 09:24 | P.PNANES_ITS ---
[facility] Disclaimer: The information contained in this section may have been updated after the patient was seen, as this information can be updated by other users. Medical History COPD (chronic obstructive pulmonary disease) GERD (gastroesophageal reflux disease) DJD (degenerative joint disease) Hyperlipidemia Hypertension Vitamin D deficiency Surgical History History of cataract surgery Family History Other Family history of cancer Family history of heart disease Family history of tuberculosis Social History Smoking Status: Never smoker alcohol intake: never substance use type: denies use current occupational status: retired household members: none housing: house caffeine: Yes [facility] Anesthesia Checklist Patient Identification Patient Identification: Verbal (Name & ) Structural Data Admitted From: Home Planned Operative Procedure/s: carpal tunnel release Consent for Planned Operative Procedure(s) Verified: Yes NPO Status Verified Time NPO: 00:00 Additional verifications Anesthesia Reactions: No Hx Blood Transfusions: No Blood Transfusion Reaction: No Airway Assessment Mallampati Score:: Class II C-Spine Mobility Assessed: Yes TMJ Mobility Assessed: Yes Dentition: Dentures-good fit Neurological Assessment Level of Consciousness: Awake, Alert and Appropriate Anesthesia Plan Anesthesia Risk discussed: Yes Anesthesia Plan: Verified ASA Class: II Anesthesia Type: General
[2024-01-29] MEDS: CEFAZOLIN SODIUM 2 GM in 0.9 % SODIUM CHLORIDE 100 ML IV (09:43)
[2024-01-29] MEDS: LIDOCAINE 1% W/EPI 1:100,000 20ML VIAL 20 ML (10:00)
--- NOTE | 2024-01-29 10:18 | EXP.OP.NOTE ---
Date of procedure: 01/29/24 Pre-op Diagnosis:: Right carpal tunnel syndrome Post-op Diagnosis:: Same Procedure performed:: Right endoscopic carpal tunnel release Surgeon:: Phil Yao DO Airplane Patrol Pilot(s):: Dawson ANGEL CAN CUTTER:: Willy Gonzalez Anesthesia: MAC and local Estimated blood loss (mL): 0 Operative findings:: See dictation Operative note:: Patient is identified preoperatively. Right wrist marked with yes and my initials. Then transported operative suite. Placed upon operating bed with a hand table. Right upper extremity prepped and draped normal sterile fashion. Once prepped and draped final operative timeout performed to identify proper patient procedure and extremity. Everyone involved the case agreed. There is no counter indications to beginning. Did receive preoperative antibiotics. Marking pen was used to tawanda plan incision over the volar wrist crease. Esmarch was used exsanguinate the extremity and pneumatic tourniquet inflated to 250 mmHg. Skin knife was used incise the skin dissection was taken down with the scissors and retractors to identify the most proximal aspect the transverse carpal ligament once identified the smaller dilator followed by the larger dilator followed by the 4.0 mm sled was placed into the carpal tunnel. Camera was then placed through the sled transverse carpal ligament clearly seen superiorly within the camera. Probe was used to identify the most distal aspect of the transverse carpal ligament. Rasp was used to remove soft tissue from the undersurface. Then the hook blade from the [employer] endoscopic carpal tunnel system was utilized. The transverse carpal ligament was incised and released fully. This was directly visualized on the camera. Irrigation of the wound performed. Wound closed with interrupted 4.0 Monocryl buried sutures and Steri-Strips and sterile hand dressing placed. Patient waken anesthesia taken recovery in stable condition. Condition: stable Disposition: PACU Complications:: None apparent
[2024-01-29 10:24] VITALS: BP 143/68; PULSE 96; RESP 18; TEMP 36.2; O2SAT 99
[2024-01-29 10:34] VITALS: BP 141/64; PULSE 91; RESP 18; O2SAT 99
[2024-01-29 10:44] VITALS: BP 149/70; PULSE 92; RESP 18; O2SAT 99
[2024-01-29 10:54] VITALS: BP 131/68; PULSE 89; RESP 18; O2SAT 99
== END 2024-01-29 10:54 | disposition home or self-care (01) ==
PROVIDERS: Nurse Anesthetist, Certified Registered; PCP Nurse Practitioner Family; Visit Provider Orthopaedic Surgery
PROC: (CPT 64721; principal; 2024-01-29 09:30)
DX: G56.01 Carpal tunnel syndrome, right upper limb (principal)
CPT/HCPCS: 29848; 80048; 82962; 85025; 96374; J0690; J3010; J7120

== ENCOUNTER 2024-05-27 11:00 | Outpatient (RCR) | payer MEDICARE, OTHER, SELFPAY ==
--- NOTE | 2024-05-21 15:58 | HMH.OTOPEV ---
OT Inpatient Evaluation Rehab OT Outpatient Eval Start: 05/21/24 14:42 Freq: Status: Active Protocol: Document 05/21/24 14:43 JEFFYJERONIMO (Rec: 05/21/24 15:56 SANTIAGO [id number]) E-signed By Cheri Salas, OT Outpatient Therapy Subjective History Subjective History 83 year old female referred to skilled OP OT services for CTR to the R hand on 01/29/24. Patient is currently 15 weeks out from initial surgery. Patient stated her wrist was feeling fine and d/c from ortho til ~2-3 weeks ago when pain increased. Patient recently seen by PCP re: pain in her R wrist after CTR. PCP referred patient to therapy services. 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 Chief Complaint Pain,Stiff,Swelling,Weakness, Decreased Basket Maker Strength Symptom Type Ache Symptoms Relieved By Rest/Positioning Symptoms Aggravated By Physical Activity Prior Functional Limitations None Current Functional Limitations Reaching,Lifting,Recreation Activity Symptom Description Constant and Continuous Level of pain today (0-10) 0 Pain scale - at its best (0-10) 0 Pain scale - at its worst (0-10) 3 Wrist/Hand Eval Wrist Range of Motion Right Wrist Extension Active Range of Motion ( 49 degrees) Wrist Flexion Active Range of Motion ( 51 degrees) Wrist Radial Deviation Active Range of 15 Motion (degrees) Wrist Ulnar Deviation Active Range of 25 Motion (degrees) Forearm Supination Active Range of 90 Motion (degrees) Forearm Pronation Active Range of Motion 90 (degrees) Basket Maker/Pinch Strength Right Basket Maker Strength Measurement (lbs) 32 Left Basket Maker Strength Measurement (lbs) 35 QuickDASH Activities Please rate your ability to do the following activities in the last week by selecting the number below the appropriate response. 1. Open a tight or new jar. Moderate difficulty 2. Do heavy peoplesoft administrator (e.g., wash Moderate difficulty pereira, floors). 3. Carry a shopping bag or briefcase. Moderate difficulty 4. Wash your back. Moderate difficulty 5. Use a knife to cut food. Moderate difficulty 6. Recreational activities in which you Moderate difficulty take some force or impact through your arm, shoulder, or hand (e.g., golf, hammering, tennis, etc.). 7. During the past week, to what extent Moderately has your arm, shoulder or hand problem interfered with your normal social activities with family, friends, neighbors or groups? 8. During the past week, were you Moderately limited limited in your work or other regular daily activites as a result of your arm, shoulder or hand problem? 9. Arm, shoulder or hand pain. Moderate 10. Tingling (pins and needles) in your None arm, shoulder or hand. 11. During the past week, how much No difficulty difficulty have you had sleeping because of the pain in your arm, shoulder or hand? 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 Goals Number of Weeks 4 Increase Range of Motion Yes: Improve R UE wrist flex: 60; ext: 60; RD:20; UD: 30 Increase Strength Yes: 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 strength: 40# Decrease Subjective C/O Pain Yes: 1/10 pain at best Patient to be Ind w/ HEP Yes: AROM Patient to be Ind w/ Advanced HEP Yes: Advance strengthening Improve Quick Dash Score Yes: 24 Outpatient Therapy Plan of Care Treatment Plan May Include Therapeutic Exercise Including Home Yes Exercise Program Manual Therapy Techniques Yes Therapeutic Activities to Return to Yes Previous Functional/Work Level Electrical Stimulation Yes Ultrasound/Phonophoresis Yes Iontophoresis Yes Eval/Re-Eval Yes Aquatic Therapy Yes Frequency Times per week 2x/wk Duration Number of Weeks 4 weeks Addendums This patient is a candidate for social No or vocational rehab? Patient/Guardian verbally acknowledges Yes understanding of treatment program and consents to further treatment? Patient/Guardian verbally acknowledges Yes understanding of diagnosis, prognosis and goals for treatment? Eval Complexity OT Charge 30858 - Low Complexity Shoulder/Elbow Eval Shoulder Objective Measurements Elbow Objective Measurements PHYSICIAN CERTIFICATION: I certify the specified therapy services for Otilia Silvia Al are required, authorized, and reviewed every 30 days.
== END 2024-05-27 23:59 | disposition home or self-care (01) ==
LOC: OT 11:00
PROVIDERS: PCP Internal Medicine; Visit Provider Internal Medicine
DX: Z98.890 Other specified postprocedural states (principal); G56.01 Carpal tunnel syndrome, right upper limb
CPT/HCPCS: 97014; 97035; 97140; 97165; 97530; G0283

== ENCOUNTER 2024-06-19 14:00 | Outpatient (RCR) | payer MEDICARE, OTHER, SELFPAY | END 2024-06-19 23:59 | disposition home or self-care (01) | LOC: OT 14:00 | PROVIDERS: PCP Internal Medicine; Visit Provider Internal Medicine | DX: Z98.890 Other specified postprocedural states (principal); G56.01 Carpal tunnel syndrome, right upper limb | CPT/HCPCS: 97014; 97018; 97035; 97110; 97140; G0283 ==

== ENCOUNTER 2024-10-23 16:41 | Outpatient (CLI) | payer MEDICARE, OTHER, SELFPAY ==
--- NOTE | 2024-10-23 16:44 | XR_ITS ---
FINAL REPORT TECHNIQUE: Right hand 2 views CLINICAL HISTORY: Swelling/pain in joints COMPARISON: Views of the right wrist 06/16/2022 FINDINGS: RIGHT HAND: Two images of the right hand were obtained. There is no evidence of fracture or dislocation. Mild multijoint degenerative change is present. There is chondrocalcinosis involving the wrist. IMPRESSION: Mild multijoint degenerative change, with chondrocalcinosis involving the wrist. No acute osseous abnormality is identified. Reviewed, Interpreted and Dictated by Negrita Herrera MD Transcribed by Barbara Bryson Authenticated and [facility]
== END 2024-10-23 23:59 | disposition home or self-care (01) ==
LOC: RAD 16:42
PROVIDERS: PCP Internal Medicine; Visit Provider Internal Medicine
DX: M19.041 Primary osteoarthritis, right hand (principal); M11.241 Other chondrocalcinosis, right hand
CPT/HCPCS: 73120